=== PATIENT | female | born 1965 | race Caucasian/White ===

== ENCOUNTER 2023-10-12 09:51 | Outpatient (REF) | payer OTHER, SELFPAY ==
--- NOTE | ~2023-10-12 | MM_ITS ---
EXAMINATION: MM SCREENING DIGITAL BREAST TOMOSYNTHESIS, BILATERAL CLINICAL INFORMATION: Screening. Asymptomatic. COMPARISON: Mammography: This study is compared with prior exams dating back to 2012. TECHNIQUE: Digital breast tomosynthesis is performed in both the craniocaudal and mediolateral oblique views along with computer-aided detection (CAD). Synthesized 2D images are generated from the tomosynthesis. FINDINGS: The breasts are heterogeneously dense, which may obscure small masses (ACR BI-RADS breast composition Category c). There are no significant masses, abnormal calcifications, or other abnormalities. MM/MM tomosynthesis screening BI IMPRESSION: No mammographic evidence of malignancy. ASSESSMENT: BI-RADS BI-RADS 1 - Negative RECOMMENDATION: Routine annual mammography screening. 1 year F/U This examination should not preclude the clinical evaluation of a suspicious palpable abnormality. This patient's information was entered into a reminder system with a target due date for their next mammogram.
== END 2023-10-12 09:52 | disposition home or self-care (01) ==
LOC: HO.MAMMO 09:51
PROVIDERS: PCP Internal Medicine; Visit Provider Internal Medicine
DX: Z12.31 Encounter for screening mammogram for malignant neoplasm of breast (principal)
CPT/HCPCS: 77063; 77067

== ENCOUNTER → 2023-10-12 10:15 | Outpatient (BNV) | payer OTHER, SELFPAY | PROVIDERS: PCP Internal Medicine; Visit Provider Radiology Diagnostic Radiology | DX: Z12.31 Encounter for screening mammogram for malignant neoplasm of breast (principal) | CPT/HCPCS: 77063; 77067 ==

== ENCOUNTER 2023-12-28 13:55 | Outpatient (REF) | payer OTHER, SELFPAY | END 2023-12-28 13:56 | disposition home or self-care (01) | LOC: HO.LAB 13:55 | PROVIDERS: PCP Internal Medicine; Visit Provider Internal Medicine | DX: Z13.89 Encounter for screening for other disorder (principal) ==

== ENCOUNTER 2023-12-29 10:32 | Outpatient (REF) | payer OTHER, SELFPAY ==
[2023-12-29 10:44] LABS: MANUAL DIFF FLAG NO
[2023-12-29 11:03] LABS: Basophils Percent Auto 0.4 % (0-2); Eosinophils Absolute Auto 0.2 X10*3/uL (0.0-0.4); Eosinophils Percent Auto 2.4 % (0-4); Hematocrit 43.5 % (37.0-47.0); Hemoglobin 13.5 g/dl (12.0-16.0); Imm Gran Abs Auto 0.03 X10*3/uL (0.00-0.03); Imm Gran Pct Auto 0.4 % (0.0-0.4); Lymphocytes Absolute Auto 2.4 X10*3/uL (1.2-4.9); Lymphocytes Percent Auto 32.9 % (20-40); Mean Corpuscular Hemoglobin 24.4 pg (27.0-33.0); Mean Corpuscular Volume 78.7 fL (80.0-98.0); Mean Platelet Volume 9.9 fL (9.4-12.3); Monocytes Absolute Auto 0.5 X10*3/uL (0.1-1.2); Monocytes Percent Auto 7.2 % (2-11); Neutrophils Absolute Auto 4.1 x10*3/uL (2.0-8.3); Neutrophils Percent Auto 56.7 % (45-73); Platelet Count 247 X10*3/uL (160-400); Red Blood Count 5.53 X10*6/uL (4.20-5.50); Red Cell Distribution Width 14.6 % (11.0-16.0); White Blood Count 7.2 X10*3/uL (4.8-10.8)
[2023-12-29 12:01] LABS: Alanine Aminotransferase 19 U/L (0-31); Albumin Level 4.2 g/dL (3.5-5.0); Alkaline Phosphatase 109 U/L (39-117); Anion Gap 12 (12-20); Aspartate Amino Transferase 18 U/L (5-31); Bilirubin Total 0.2 mg/dL (0.0-1.0); Blood Urea Nitrogen 12 mg/dL (9-16); Calcium 9.8 mg/dL (8.4-10.2); Carbon Dioxide 24 mmol/L (22-29); Chloride 111 mmol/L (96-108); Cholesterol 192 mg/dL (<200); Estimated Glomerular Filt Rate > 60; Glucose Random 87 mg/dL (60-115); HDL Cholesterol 33 mg/dL (>40); LDL Cholesterol Calculated 126 mg/dL (<100); Sodium 142 mmol/L (135-145); Total Protein 7.5 g/dL (6.5-8.0); Triglycerides 167 mg/dL (<150)
== END 2023-12-29 10:33 | disposition home or self-care (01) ==
LOC: HO.LAB 10:32
PROVIDERS: PCP Internal Medicine; Visit Provider Internal Medicine
DX: Z00.00 Encounter for general adult medical examination without abnormal findings (principal); E78.00 Pure hypercholesterolemia, unspecified; F11.21 Opioid dependence, in remission; F32.9 Major depressive disorder, single episode, unspecified; I71.20 Thoracic aortic aneurysm, without rupture, unspecified; Z72.0 Tobacco use
CPT/HCPCS: 36415; 80053; 80061; 85025

== ENCOUNTER 2024-02-11 12:02 | Outpatient (REF) | payer OTHER, SELFPAY ==
[2024-02-11 14:07] LABS: Alanine Aminotransferase 19 U/L (0-31); Albumin Level 4.2 g/dL (3.5-5.0); Alkaline Phosphatase 101 U/L (39-117); Anion Gap 13 (12-20); Aspartate Amino Transferase 15 U/L (5-31); Bilirubin Total 0.2 mg/dL (0.0-1.0); Blood Urea Nitrogen 12 mg/dL (9-16); Calcium 9.5 mg/dL (8.4-10.2); Carbon Dioxide 24 mmol/L (22-29); Chloride 108 mmol/L (96-108); Cholesterol 243 mg/dL (<200); Estimated Glomerular Filt Rate > 60; Glucose Random 79 mg/dL (60-115); HDL Cholesterol 30 mg/dL (>40); LDL Cholesterol Calculated 159 mg/dL (<100); Potassium 4.6 mmol/L (3.3-5.1); Sodium 140 mmol/L (135-145); Total Protein 7.3 g/dL (6.5-8.0); Triglycerides 273 mg/dL (<150)
== END 2024-02-11 12:03 | disposition home or self-care (01) ==
LOC: HO.10HDL 12:02
PROVIDERS: Visit Provider Internal Medicine
DX: E78.00 Pure hypercholesterolemia, unspecified (principal); J43.9 Emphysema, unspecified; M79.18 Myalgia, other site; Z72.0 Tobacco use
CPT/HCPCS: 36415; 80053; 80061

== ENCOUNTER 2024-05-13 10:21 | Outpatient (REF) | payer OTHER, SELFPAY ==
[2024-05-13 12:01] LABS: Cholesterol 259 mg/dL (<200); HDL Cholesterol 29 mg/dL (>40); LDL Cholesterol Calculated 170 mg/dL (<100); Triglycerides 300 mg/dL (<150)
[2024-05-13 12:03] LABS: Thyroid Stimulating Hormone 2.71 uIU/mL (0.32-4.0)
== END 2024-05-13 10:22 | disposition home or self-care (01) ==
LOC: HO.10HDL 10:21
PROVIDERS: Visit Provider Internal Medicine
DX: E78.00 Pure hypercholesterolemia, unspecified (principal); Z72.0 Tobacco use; Z79.891 Long term (current) use of opiate analgesic
CPT/HCPCS: 36415; 80061; 84443

== ENCOUNTER 2024-05-20 12:35 | Outpatient (AMB) | payer OTHER, SELFPAY ==
--- NOTE | 2024-05-20 12:36 | MHC.OFFVIS ---
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: No Accompanied by: Self / Same As Patient Allergies penicillin G [PENICILLIN G] Allergy (Severe, Unverified 08/12/20 15:05) DIFFICULTY BREATHING Evbehkj-QJW-HdU Reductase Inhibitor Adverse Reaction (Severe, Verified 05/20/24 13:50) Muscle Pain Medication List - Last Reconciled 05/20/24 by Max Raymundo MD azithromycin 500 mg PO DAILY baclofen 10 mg PO TID hydroxyzine pamoate 50 mg PO BID PRN ibuprofen mg PO dorzbfws-opv-ZK-lycopen-lutein 0.4 mg-300 mcg- 250 mcg (CertaVite Senior) 1 tab PO DAILY sertraline mg PO topiramate 100 mg PO DAILY HPI Comments Details: Ani is here for consultation regarding assessment for coronary disease. Additionally, there is also diagnosis of thoracic aortic aneurysm based on PCP's note with a dimension of 4.3 cm. Unclear how this was diagnosed. Patient states that she does not have any known coronary disease or any other cardiac issues apart from the aneurysm. Otherwise, she is concerned as there is a family history of coronary disease in her siblings. Various siblings have had coronary disease, myocardial infarction, PCI extra. Hence there is a concern. There is a history of substance abuse including cocaine and heroin but nothing recently. She gets some atypical chest pains as well as shoulder/upper extremity discomfort but sounds very nonspecific. Nothing clearly exertional. [facility] Medical History (Updated 05/20/24 @ 13:48 by Max Raymundo MD) Ascending aortic aneurysm High cholesterol Substance abuse COPD (chronic obstructive pulmonary disease) Family History (Updated 05/20/24 @ 12:49 by Lottie Anne PRODUCTION TECHNOLOGIST) Mother Cancer Father Heart failure Brother Heart failure Diabetes Additional heart attack (anterolateral wall) Brother Heart failure History of cardioversion Son Palpitations Sister History of heart artery stent Social History (Updated 05/20/24 @ 13:46 by Max Raymundo MD) Alcohol intake: never Patient Tobacco Use Status: Current everyday Tobacco user Substance Use Type: Former Substance User Review of Systems Const Denies chills, Denies fatigue, Denies fever(s), Denies frequent falls, Denies weakness, Denies weight gain and Denies weight loss ENT Denies dizziness Card Denies chest pain, Denies leg edema, Denies lightheadedness, Denies palpitations, Denies dyspnea, Denies dyspnea on exertion and Denies orthopnea Resp Denies cough, Denies dyspnea and Denies dyspnea on exertion GI Denies bloating and Denies change in bowel habits Musc Denies muscle weakness, Denies numbness and Denies tingling Neuro Denies dizziness, Denies frequent falls, Denies numbness, Denies tingling and Denies weakness Endo Denies fatigue and Denies palpitations Physical Exam Vital Signs: Last Vital Signs Pulse 76 05/20/24 12:41 BP 124/60 05/20/24 12:41 BMI result Body Mass Index 25.5 Const General: comfortable and no acute distress Orientation/consciousness: patient oriented x3 HEENT Other: Unremarkable Head: Yes normal to inspection Neck Neck: Yes normal visual inspection Chest Chest palpation & inspection: normal inspection of the chest Resp Auscultation: clear to auscultation bilaterally Cardio Palpation: normal PMI Heart sounds: S1 normal heart sound present, S2 normal heart sound present, no gallops, Murmur heart sound present diastolic I/ and at the base and no rubs GI Palpation (GI): Soft to palpation Back/Spine/Pelvis Other: unremarkable Skin General skin exam: no rashes or lesions noted Neuro General: patient oriented x3 Extrem General: Yes normal to inspection Psych Mental Status: mental status grossly normal Office Procedures EKG Details: EKG with sinus rhythm at 76/Min; nonspecific ST-[place] changes; [place] [id number], Complete Assessment & Plan Assessment & Plan (1) Ascending aortic aneurysm: Code(s): I71.21 - Aneurysm of the ascending aorta, without rupture Category: Medical (2) Family history of coronary artery disease: Code(s): Z82.49 - Family history of ischemic heart disease and other diseases of the circulatory system Category: Medical Plan Multiple risk factors for coronary disease including smoking, substance abuse, strong family history. There is also description of thoracic aortic aneurysm of 4.3 cm. Can get coronary CTA for further evaluation which kinesis both her coronary status as well as the aorta. There is also a diastolic murmur which could indicate some degree of aortic insufficiency. We will get an echocardiogram in that regard. With regard to the history of statin intolerance, there is mention of Repatha through primary care and that seems reasonable. Orders: Orders Basic Metabolic Panel Today I71.21 - Aneurysm of the ascending aorta, without rupture CA echo transthoracic complete Today I71.21 - Aneurysm of the ascending aorta, without rupture CT Cardiac Coronary Angio Today I25.10 - Atherosclerotic heart disease of [place] coronary artery without angina pectoris, I71.21 - Aneurysm of the ascending aorta, without rupture Coding Level of Care Code New Pt Level 4 (27651) Diagnoses Ascending aortic aneurysm I71.21 Family history of coronary artery disease Z82.49 CPT Codes EKG - CPT: 29007-[id number], Complete ([id number])
[2024-05-20 12:41] VITALS: BP 124/60; PULSE 76; BMI 25.5
== END 2024-05-20 13:27 | disposition home or self-care (01) ==
PROVIDERS: PCP Internal Medicine; Visit Provider Internal Medicine
DX: I71.21 Aneurysm of the ascending aorta, without rupture (principal); Z82.49 Family history of ischemic heart disease and other diseases of the circulatory system
CPT/HCPCS: 93010; 99204

== ENCOUNTER → 2024-05-20 12:35 | Outpatient (BNVA) | payer OTHER, SELFPAY | PROVIDERS: PCP Internal Medicine; Visit Provider Internal Medicine | DX: I71.21 Aneurysm of the ascending aorta, without rupture (principal); Z82.49 Family history of ischemic heart disease and other diseases of the circulatory system | CPT/HCPCS: 93005; 99202 ==

== ENCOUNTER → 2024-06-04 14:51 | Outpatient (REF) | payer OTHER, SELFPAY ==
--- NOTE | 2024-06-04 14:53 | CA_ITS ---
Transthoracic Echocardiogram Patient (Last, First, Middle): Ani Zuñiga J Gender: Female Date of : 1965 Age: 59 Procedure Date: 06/04/2024 Procedure Type: Transthoracic Echocardiogram Location: OP Height: 172.72 cm Weight: 75.75 kg BSA: 1.89 m2 Heart Rate: bpm BP: 116 / 60 mmHg Food Production Worker: Referring MD: Max Raymundo MD Elevator Constructor Supervisor: Evan Avery MD Symptoms: I71.21 - Aneurysm of the ascending aorta, without rupture Study Quality: Adequate ECG Rhythm: Sinus Conclusions: - 1. Normal LV ejection fraction of 60 65% with impaired relaxation filling pattern with mild LVH 2. Mild aortic regurgitation and moderate aortic stenosis, bicuspid valve can not be entirely ruled out on this study 3. Normal RV systolic pressure 4. Moderately dilated ascending aorta in one view measuring up to 4.5 cm 5. No pericardial effusion Findings Left Ventricle Normal left ventricular size and systolic function. There is mildly increased left ventricular wall thickness. The visually estimated ejection fraction is between 60-65%. Spectral Doppler is indicative of an impaired relaxation filling pattern. E/E prime ratio is between 8 and 15 consistent with indeterminate filling pressures. Right Ventricle Normal right ventricular cavity size and systolic function. Atria The left atrium is normal in size. There is no evidence of interatrial shunt. The right atrium was not well visualized. Aortic Valve The aortic valve was not well visualized. There is moderate calcification of the aortic valve. There is moderate thickening of the aortic valve. There is moderate aortic valve stenosis. The peak aortic gradient is 30 mmHg.The mean gradient is 17 mmHg. There is mild aortic valve regurgitation. Mitral Valve Normal mitral valve structure and function. There is trace mitral valve regurgitation. There is no mitral valve stenosis. Pulmonic Valve The pulmonic valve is likely normal. There is trace pulmonic valve regurgitation. Tricuspid Valve Normal tricuspid valve structure. There is trace tricuspid valve regurgitation. The right ventricular systolic pressure is normal. The right ventricular systolic pressure is 27 mmHg. Normal right atrial pressure. Mild pulmonary hypertension is present. Great Vessels The pulmonary artery was not well visualized. There is moderate dilatation of the ascending aorta measuring 4.50 cm. Venous The inferior vena cava is normal in size and collapses greater than 50% with inspiration. Pericardium/Pleural There is no evidence of pericardial effusion. Prior Study Comparison No prior study available for comparison. Measurements 2D Linear Measurements IVSd: 1.23 0.6-0.9/0.6-1.0 cm LVIDd: 3.86 3.9-5.3/4.2-5.9 cm LVIDd Index: 2.04 2.4-3.2/2.2-3.1 cm/m2 LVIDs: 2.47 2.0-3.6 cm LVPWd: 1.22 0.7-1.1 cm Ao Root: 3.70 2.1-3.5 cm LA Diam: 3.00 2.7-3.8/3.0-4.0 cm LAIDs Index: 1.59 1.5-2.3 cm/m2 LV Mass: 201.48 67-162/88-224 g LV Mass Index: 106.60 43-95/49-115 g/m2 LVOT Diam: 2.20 3.0+(-)1.3 cm Mitral Valve MV Pk E: 0.37 MV PK A: 0.55 MV Decel Time: 175.00 E/A: 0.70 E'Lateral: 9.46 E'Medial: 7.07 E/E' Med: 5.30 E/E' Lat: 3.90 PHT: 51.00 MVA PHT: 4.31 Decel [place]: 2.13 Aortic Valve AoV Pk Aaron: 2.74 AoV Mn Aaron: 1.92 AoV VTI: 0.72 AoV Pk Grad: 30.00 Aov Mn Grad: 17.00 HERNESTO Cont.VTI: 1.06 LVOT LVOT Pk Aaron: 0.80 LVOT Mn Aaron: 0.59 LVOT VTI: 0.20 LVOT Pk Grad: 3.00 LVOT Mn Grad: 2.00 LVOT Diam: 2.20 LVOT Area: 3.80 Diastolic Function MV Pk E: 0.37 MV Pk A: 0.55 E/A: 0.70 E'Medial: 7.07 E/E' Med: 5.30 E' Laterial: 9.46 E/E' Lat: 3.90 Right Ventricle TAPSE (mm): 27.00 TVS' Aaron: 13.00 Tricuspid Valve TR Pk Aaron: 2.47 TR Pk Grad: 24.00 RA Press: 3.00 RVSP: 27.00 Great Vessels Aorta Ao Root-2D: 3.70 2.0-3.7 cm Ao Asc: 4.50 2.1-3.4 cm Pulmonary Valve PV Pk Aaron: 0.77 Peak PV Grad: 2.00 Updated in Other Vendor System with Status of Final Evan Avery MD electronically signed on 06/05/2024 9:31:09 AM with status of Final
== END ==
LOC: HO.CARD 14:51
PROVIDERS: PCP Internal Medicine; Visit Provider Internal Medicine
DX: I71.21 Aneurysm of the ascending aorta, without rupture (principal)
CPT/HCPCS: 93306

== ENCOUNTER → 2024-06-04 14:53 | Outpatient (BNV) | payer OTHER, SELFPAY | PROVIDERS: PCP Internal Medicine; Visit Provider Internal Medicine Cardiovascular Disease | DX: I35.2 Nonrheumatic aortic (valve) stenosis with insufficiency (principal); I35.8 Other nonrheumatic aortic valve disorders; I71.21 Aneurysm of the ascending aorta, without rupture | CPT/HCPCS: 93306 ==

== ENCOUNTER 2024-07-17 10:36 | Outpatient (REF) | payer OTHER, SELFPAY ==
[2024-07-17 12:42] LABS: Anion Gap 11 (12-20); Blood Urea Nitrogen 11 mg/dL (9-16); Calcium 9.6 mg/dL (8.4-10.2); Carbon Dioxide 26 mmol/L (22-29); Chloride 110 mmol/L (96-108); Estimated Glomerular Filt Rate > 60; Glucose Random 87 mg/dL (60-115); Potassium 4.6 mmol/L (3.3-5.1); Sodium 142 mmol/L (135-145)
== END 2024-07-17 10:37 | disposition home or self-care (01) ==
LOC: HO.LAB 10:36
PROVIDERS: PCP Internal Medicine; Visit Provider Internal Medicine
DX: I71.21 Aneurysm of the ascending aorta, without rupture (principal)
CPT/HCPCS: 36415; 80048

== ENCOUNTER 2024-08-21 13:28 | Outpatient (AMB) | payer OTHER, SELFPAY ==
[2024-08-21 13:30] VITALS: BP 100/62; PULSE 90; BMI 25.9
--- NOTE | 2024-08-21 13:30 | A.OFFVIS_ITS ---
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 Accompanied by: Self / Same As Patient Allergies penicillin G [PENICILLIN G] Allergy (Severe, Unverified 08/12/20 15:05) DIFFICULTY BREATHING Zjkywxr-GTZ-SkX Reductase Inhibitor Adverse Reaction (Severe, Verified 05/20/24 13:50) Muscle Pain Medication List - Last Reconciled 08/21/24 by Max Raymundo MD bupropion HCl XL 300 mg PO QAM hydroxyzine pamoate 50 mg PO BID PRN ibuprofen mg PO methadone 25 mg PO DAILY exjircmm-rjb-[place]-lycopen-lutein 0.4 mg-300 mcg- 250 mcg (CertaVite Senior) 1 tab PO DAILY sertraline 100 mg PO ONCE topiramate 100 mg PO DAILY HPI Comments Details: Ani returns for follow-up. Recently seen in consultation regarding question of coronary disease. Per PCP note, history of thoracic aortic aneurysm, dimension 4.3 cm. Patient concerned as there is family history of coronary disease in her siblings. There is a history of heroin and cocaine use in the past but nothing recently. Otherwise, she generally feels well. No clear-cut anginal symptoms or shortness of breath or anything along those lines. She has completed a coronary CTA. [facility] Medical History (Updated 08/21/24 @ 14:11 by Max Raymundo MD) Atherosclerotic cardiovascular disease Ascending aortic aneurysm High cholesterol Substance abuse COPD (chronic obstructive pulmonary disease) Family History Mother Cancer Father Heart failure Brother Heart failure Diabetes Additional heart attack (anterolateral wall) Brother Heart failure History of cardioversion Son Palpitations Sister History of heart artery stent Social History (Updated 08/21/24 @ 13:36 by Ligia Sanchez CMA) Alcohol intake: never Patient Tobacco Use Status: Current everyday Tobacco user Tobacco use type: Cigarette Cigarettes Per Day: 1 Substance Use Type: Former Substance User Review of Systems Const Denies chills, Denies fatigue, Denies fever(s), Denies weight gain and Denies weight loss ENT Denies dizziness Card Denies chest pain, Denies leg edema, Denies lightheadedness, Denies palpitations, Denies dyspnea on exertion, Denies orthopnea and Denies other Resp Denies cough and Denies dyspnea on exertion GI Denies hematochezia and Denies change in stool character Musc Denies abnormal gait, Denies muscle weakness, Denies numbness, Denies radiating pain into limb and Denies tingling Neuro Denies abnormal gait, Denies dizziness, Denies numbness and Denies tingling Endo Denies fatigue and Denies palpitations Physical Exam Vital Signs: Last Vital Signs Pulse 90 08/21/24 13:30 BP 100/62 08/21/24 13:30 BMI result Body Mass Index 25.9 Const General: comfortable and no acute distress Orientation/consciousness: patient oriented x3 HEENT Other: Unremarkable Head: Yes normal to inspection Neck Neck: Yes normal visual inspection Chest Chest palpation & inspection: normal inspection of the chest Resp Auscultation: clear to auscultation bilaterally Cardio Palpation: normal PMI Heart sounds: S1 normal heart sound present, S2 normal heart sound present, no gallops, Murmur heart sound present diastolic II/ and systolic III/ and no rubs GI Palpation (GI): Soft to palpation Back/Spine/Pelvis Other: unremarkable Skin General skin exam: no rashes or lesions noted Neuro General: patient oriented x3 Extrem General: Yes normal to inspection Psych Mental Status: mental status grossly normal Assessment & Plan Assessment & Plan (1) Ascending aortic aneurysm: Code(s): I71.21 - Aneurysm of the ascending aorta, without rupture Category: Medical Plan: In the coronary CTA, ascending aortic size 4.6 cm. Findings discussed with patient. Will repeat in 6 months with an echocardiogram for follow-up. (2) Atherosclerotic cardiovascular disease: Code(s): I25.10 - Atherosclerotic heart disease of [place] coronary artery without angina pectoris Category: Medical Plan: Proximal LAD plaque with less than 25% stenosis. Her lipids are quite high. Discussed about statins, but she states she cannot take due to myalgias. To consider Repatha or Praluent. Reading material given. She would like to think about it. (3) Bicuspid aortic valve: Code(s): Q23.1 - Congenital insufficiency of aortic valve Category: Medical Plan: Images reviewed and aortic valve was not well visualized. Possible bicuspid. Moderate aortic stenosis with mild aortic regurgitation. Findings discussed. Will need to be followed echocardiogram. Orders: Orders CA echo transthoracic complete 6 Months I71.21 - Aneurysm of the ascending aorta, without rupture, Q23.1 - Congenital insufficiency of aortic valve Coding Level of Care Code Est Pt Level 4 (51676) Diagnoses Ascending aortic aneurysm I71.21 Atherosclerotic cardiovascular disease I25.10 Bicuspid aortic valve Q23.1
== END 2024-08-21 13:51 | disposition home or self-care (01) ==
PROVIDERS: PCP Internal Medicine; Visit Provider Internal Medicine
DX: I71.21 Aneurysm of the ascending aorta, without rupture (principal); I25.10 Atherosclerotic heart disease of native coronary artery without angina pectoris; Q23.1 Congenital insufficiency of aortic valve
CPT/HCPCS: 99214

== ENCOUNTER → 2024-08-21 13:28 | Outpatient (BNVA) | payer OTHER, SELFPAY | PROVIDERS: PCP Internal Medicine; Visit Provider Internal Medicine | DX: I71.21 Aneurysm of the ascending aorta, without rupture (principal); I25.10 Atherosclerotic heart disease of native coronary artery without angina pectoris; Q23.1 Congenital insufficiency of aortic valve | CPT/HCPCS: 99212 ==

== ENCOUNTER 2024-08-26 14:45 | Outpatient (AMB) | payer OTHER, SELFPAY ==
--- NOTE | 2024-08-26 14:57 | A.OFFVIS_ITS ---
Vital Signs 08/26/24 14:59 Height 5 ft 8 in Weight 171 lb 15.369 oz BMI 26.1 BP 122/60 Blood Pressure Location Lt brachial Position Sitting Pulse 88 Pulse Source Pulse Oximeter Pulse Oximetry (%) 90 L Oxygen Delivery Method Room Air Intake Visit Reasons: Abnormal CTA/Emphysema Burrer Marker Axle Required: No Allergies penicillin G [PENICILLIN G] Allergy (Severe, Unverified 08/26/24 15:01) DIFFICULTY BREATHING Bdezidk-GUV-ZiS Reductase Inhibitor Adverse Reaction (Severe, Verified 08/26/24 15:01) Muscle Pain HPI Comments Details: The patient is here for pulmonary evaluation. The patient is 59 year woman with a known history of tobacco dependency presenting with abnormal findings on imaging study. Apparently the patient does have underlying heart disease including a bicuspid aortic valve in a ascending aortic aneurysm. She did undergo a coronary artery CT scan to better address the coronary arteries and there they mention that there was extensive amount of emphysema and also 3 mm pulmonary nodule. Explained to the patient that the amount of lung windows on the CT scan of the coronary arteries is very limited. Therefore, it is not a complete evaluation of her lung parenchyma. Therefore, because of her smoking history she is a great candidate for the lung cancer screening program. Will go ahead and try to initiate a program in order to get her situated with serial CT scans in view of her high risk for cancer. In view of the significant emphysema noted on her CT scan it is very reasonable to perform a DNA swab for alpha-1 antitrypsin deficiency specially since she is only 59 years of age. In addition to that the patient did have a walking oximetry in the office and she initially was around 92% with activity but she quickly improved to 94% with deep breathing. Will go ahead and perform pulmonary function study to see the degree of lung capacity. She does have a rescue inhaler this time which she can use as needed. Will hold off on any additional inhalers until we review her PFTs. The patient is working on smoking cessation. She is down to 1 cigarette a day. She struggles with the however. Therefore, I did send her the nicotine patches that she can use up 14 mg and also consider using lozenges as needed in between. [facility] Medical History (Updated 08/26/24 @ 20:44 by Nasim Snow MD) Pulmonary nodule Tobacco dependence Atherosclerotic cardiovascular disease Ascending aortic aneurysm High cholesterol Substance abuse COPD (chronic obstructive pulmonary disease) Family History Mother Cancer Father Heart failure Brother Heart failure Diabetes Additional heart attack (anterolateral wall) Brother Heart failure History of cardioversion Son Palpitations Sister History of heart artery stent Social History (Updated 08/21/24 @ 13:36 by Ligia Sanchez CMA) Alcohol intake: never Patient Tobacco Use Status: Current everyday Tobacco user Tobacco use type: Cigarette Cigarettes Per Day: 1 Substance Use Type: Former Substance User Review of Systems Const Denies fever(s) ENT Reports nasal congestion Card Denies chest pain and Reports dyspnea on exertion Resp Reports dyspnea on exertion and Reports wheezing GI Reports no additional complaints Musc Reports no additional complaints Skin/Breast Denies rash Satya/Lymph Reports no additional complaints Aller/Immun Reports wheezing Physical Exam Vital Signs: Last Vital Signs Pulse 88 08/26/24 14:59 BP 122/60 08/26/24 14:59 Pulse Ox 90 L 08/26/24 14:59 Oxygen Delivery Method Room Air 08/26/24 14:59 BMI result Body Mass Index 26.1 Const General: comfortable HEENT Head: Yes normocephalic Neck Neck: Yes supple Chest Chest palpation & inspection: normal inspection of the chest Resp Effort & Inspection: normal respiratory effort Auscultation: diminished lung sounds Cardio Heart sounds: S1 normal heart sound present and S2 normal heart sound present GI Palpation (GI): Soft to palpation Skin General skin exam: no rashes or lesions noted Extrem General: Yes clubbing, No cyanosis and No edema Assessment & Plan Assessment & Plan (1) COPD (chronic obstructive pulmonary disease): Code(s): J44.9 - Chronic obstructive pulmonary disease, unspecified Category: Medical Qualifiers: COPD type: emphysema Emphysema type: centrilobular Qualified Code(s): J43.2 - Centrilobular emphysema (2) Tobacco dependence: Code(s): F17.200 - Nicotine dependence, unspecified, uncomplicated Category: Medical (3) Pulmonary nodule: Code(s): R91.1 - Solitary pulmonary nodule Category: Medical Plan Alpha 1 testing today PFTs start nicotene patch LUIS M as needed will refer to the LDCT program based on the fact that she has not had a formal CT chest F/U 2-3 months Orders: Orders PFT pulmonary function test Today J44.9 - Chronic obstructive pulmonary disease, unspecified Medications: New nicotine 1 patch transdermal DAILY 28 ea 3RF 28 days Coding Level of Care Code New Pt Level 4 (23327) Diagnoses Centrilobular emphysema J43.2 COPD type: emphysema Emphysema type: centrilobular Tobacco dependence F17.200 Pulmonary nodule R91.1 Time Spent (min) 40
[2024-08-26 14:59] VITALS: BP 122/60; PULSE 88; O2SAT 90; BMI 26.1
== END 2024-08-26 15:27 | disposition home or self-care (01) ==
PROVIDERS: PCP Internal Medicine; Referring Provider Internal Medicine; Visit Provider Hospitalist
DX: J43.2 Centrilobular emphysema (principal); F17.200 Nicotine dependence, unspecified, uncomplicated; R91.1 Solitary pulmonary nodule
CPT/HCPCS: 99204

== ENCOUNTER → 2024-08-26 14:45 | Outpatient (BNVA) | payer OTHER, SELFPAY | PROVIDERS: PCP Internal Medicine; Referring Provider Internal Medicine; Visit Provider Hospitalist | DX: J43.2 Centrilobular emphysema (principal); R91.1 Solitary pulmonary nodule; F17.210 Nicotine dependence, cigarettes, uncomplicated | CPT/HCPCS: 99202 ==

== ENCOUNTER 2024-10-21 15:59 | Outpatient (REF) | payer OTHER, SELFPAY ==
[2024-10-21 10:30] VITALS: PULSE 85; O2SAT 92
--- NOTE | 2024-10-21 16:04 | PFT_ITS ---
Flows: FEV1: 79 % of predicted at 2.24 L FVC: 109 % of predicted at 3.93 L FEV1/FVC: 57 % Bronchodilator response: Present Volumes: Total lung capacity: 90 % of predicted at 5.27 L Residual volume: 80 % of predicted at 1.59 L Slow vital capacity: 96 % of predicted at 3.67 L Expiratory reserve volume: 63 % of predicted at no 0.6 to L Diffusion capacity: Mildly decreased Impression: Moderate obstructive ventilatory defect with positive bronchodilator response. Decreased diffusion capacity suggests emphysema. MTDD
== END 2024-10-21 16:00 | disposition home or self-care (01) ==
LOC: HO.RESP 15:59
PROVIDERS: PCP Internal Medicine; Visit Provider Hospitalist
DX: J44.9 Chronic obstructive pulmonary disease, unspecified (principal)
CPT/HCPCS: 94010; 94640; 94727; 94729

== ENCOUNTER → 2024-10-21 16:04 | Outpatient (BNV) | payer OTHER, SELFPAY | PROVIDERS: PCP Internal Medicine; Visit Provider Internal Medicine Pulmonary Disease | DX: J44.9 Chronic obstructive pulmonary disease, unspecified (principal) | CPT/HCPCS: 94060; 94727; 94729 ==

== ENCOUNTER → 2024-11-10 13:15 | Outpatient (BNV) | payer OTHER, SELFPAY | PROVIDERS: PCP Internal Medicine; Visit Provider Internal Medicine | DX: Z12.31 Encounter for screening mammogram for malignant neoplasm of breast (principal) | CPT/HCPCS: 77063; 77067 ==

== ENCOUNTER 2024-11-10 13:16 | Outpatient (REF) | payer OTHER, SELFPAY | END 2024-11-10 13:17 | disposition home or self-care (01) | LOC: HO.MAMMO 13:16 | PROVIDERS: PCP Internal Medicine; Visit Provider Internal Medicine | DX: Z12.31 Encounter for screening mammogram for malignant neoplasm of breast (principal) | CPT/HCPCS: 77063; 77067 ==

== ENCOUNTER 2024-12-02 13:56 | Outpatient (AMB) | payer OTHER, SELFPAY ==
[2024-12-02 13:58] VITALS: BP 130/84; PULSE 86; O2SAT 90; BMI 27.0
--- NOTE | 2024-12-02 13:58 | A.OFFVIS_ITS ---
Vital Signs 12/02/24 13:58 Height 5 ft 8 in Weight 177 lb 7.554 oz BMI 27.0 BP 130/84 Blood Pressure Location Rt brachial Position Sitting Pulse 86 Pulse Source Pulse Oximeter Pulse Oximetry (%) 90 L Oxygen Delivery Method Room Air Intake Visit Reasons: Emphysema Allergies penicillin G [PENICILLIN G] Allergy (Severe, Unverified 12/02/24 14:02) DIFFICULTY BREATHING Skdevxh-PJC-YmL Reductase Inhibitor Adverse Reaction (Severe, Verified 12/02/24 14:02) Muscle Pain HPI Comments Details: The patient is 59 year woman with a known history of tobacco dependency presenting with abnormal findings on imaging study. Apparently the patient does have underlying heart disease including a bicuspid aortic valve in a ascending aortic aneurysm. She did undergo a coronary artery CT scan to better address the coronary arteries and there they mention that there was extensive amount of emphysema and also 3 mm pulmonary nodule. Explained to the patient that the amount of lung windows on the CT scan of the coronary arteries is very limited. Therefore, it is not a complete evaluation of her lung parenchyma. Therefore, because of her smoking history she is a great candidate for the lung cancer screening program. Will go ahead and try to initiate a program in order to get her situated with serial CT scans in view of her high risk for cancer. In view of the significant emphysema noted on her CT scan it is very reasonable to perform a DNA swab for alpha-1 antitrypsin deficiency specially since she is only 59 years of age. In addition to that the patient did have a walking oximetry in the office and she initially was around 92% with activity but she quickly improved to 94% with deep breathing. Will go ahead and perform pulmonary function study to see the degree of lung capacity. She does have a rescue inhaler this time which she can use as needed. Will hold off on any additional inhalers until we review her PFTs. The patient is working on smoking cessation. She is down to 1 cigarette a day. She struggles with the however. Therefore, I did send her the nicotine patches that she can use up 14 mg and also consider using lozenges as needed in between. 12/02/2024 the patient is here for a pulmonary follow-up visit. The patient overall is doing well. She quit smoking and she is very happy about that. She has been smoke free for 3 months. She does have a CT scan scheduled for the end of the month for the lung cancer screening program. In addition to that she did have pulmonary function studies. Appears to have a moderate degree of COPD. She did have a significant response to bronchodilators. Will be reasonable to start her on oral. She can try for a month to see if this is helpful. She does complaint of dyspnea on exertion. Also with the cold weather bothers her more so this will be helpful specially during the winter months. The patient will follow-up in 8-10 months. If she has any issues prior to that she will call for an earlier assessment. Also to note her genotype for alpha-1 was mm which is normal. [facility] Medical History (Updated 11/14/24 @ 07:55 by Karen Pelletier PA-C) Nicotine dependence, cigarettes, uncomplicated Personal history of nicotine dependence Pulmonary nodule Atherosclerotic cardiovascular disease Ascending aortic aneurysm High cholesterol Substance abuse COPD (chronic obstructive pulmonary disease) Family History (Reviewed 08/21/24 @ 13:35 by Ligia Sanchez [facility]) Mother Cancer Father Heart failure Brother Heart failure Diabetes Additional heart attack (anterolateral wall) Brother Heart failure History of cardioversion Son Palpitations Sister History of heart artery stent Social History (Updated 12/02/24 @ 14:01 by Magaly Esets [facility]) Alcohol intake: never Patient Tobacco Use Status: Former Tobacco user Tobacco use type: Cigarette Cigarettes Per Day: 1 Substance Use Type: Former Substance User Review of Systems Const Denies fever(s) ENT Reports nasal congestion Card Denies chest pain and Reports dyspnea on exertion Resp Reports dyspnea on exertion and Reports wheezing GI Reports no additional complaints Musc Reports no additional complaints Skin/Breast Denies rash Satya/Lymph Reports no additional complaints Aller/Immun Reports wheezing Physical Exam Vital Signs: Last Vital Signs Pulse 86 12/02/24 13:58 BP 130/84 12/02/24 13:58 Pulse Ox 90 L 12/02/24 13:58 Oxygen Delivery Method Room Air 12/02/24 13:58 BMI result Body Mass Index 27.0 Const General: comfortable HEENT Head: Yes normocephalic Neck Neck: Yes supple Chest Chest palpation & inspection: normal inspection of the chest Resp Effort & Inspection: normal respiratory effort Auscultation: diminished lung sounds Cardio Heart sounds: S1 normal heart sound present and S2 normal heart sound present GI Palpation (GI): Soft to palpation Skin General skin exam: no rashes or lesions noted Extrem General: Yes clubbing, No cyanosis and No edema Assessment & Plan Assessment & Plan (1) COPD (chronic obstructive pulmonary disease): Code(s): J44.9 - Chronic obstructive pulmonary disease, unspecified Category: Medical Qualifiers: COPD type: emphysema Emphysema type: centrilobular Qualified Code(s): J43.2 - Centrilobular emphysema (2) Tobacco dependence: Code(s): F17.200 - Nicotine dependence, unspecified, uncomplicated Category: Medical (3) Pulmonary nodule: Code(s): R91.1 - Solitary pulmonary nodule Category: Medical Plan start Anoro PFTs-moderate COPD nicotene patch->lozengers LUIS M as needed LDCT 12/19/24 F/U 8-10 months Medications: New umeclidinium-vilanterol 62.5-25 mcg/actuation (Anoro Ellipta) 1 inh inhalation DAILY 60 ea 11RF J44.89 - Other specified chronic obstructive pulmonary disease Coding Level of Care Code Est Pt Level 4 (82445) Diagnoses Centrilobular emphysema J43.2 COPD type: emphysema Emphysema type: centrilobular Tobacco dependence F17.200 Pulmonary nodule R91.1 Time Spent (min) 17
== END 2024-12-02 14:22 | disposition home or self-care (01) ==
PROVIDERS: PCP Internal Medicine; Visit Provider Hospitalist
DX: J43.2 Centrilobular emphysema (principal); F17.200 Nicotine dependence, unspecified, uncomplicated; R91.1 Solitary pulmonary nodule
CPT/HCPCS: 99214

== ENCOUNTER → 2024-12-02 13:56 | Outpatient (BNVA) | payer OTHER, SELFPAY | PROVIDERS: PCP Internal Medicine; Visit Provider Hospitalist | DX: J43.2 Centrilobular emphysema (principal); J44.89 Other specified chronic obstructive pulmonary disease; R91.1 Solitary pulmonary nodule; Z87.891 Personal history of nicotine dependence | CPT/HCPCS: 99212 ==

== ENCOUNTER → 2024-12-19 10:29 | Outpatient (BNV) | payer OTHER, SELFPAY | PROVIDERS: PCP Internal Medicine; Visit Provider Specialist | DX: F17.210 Nicotine dependence, cigarettes, uncomplicated (principal) | CPT/HCPCS: 71271 ==

== ENCOUNTER 2024-12-19 10:52 | Outpatient (REF) | payer OTHER, SELFPAY ==
--- NOTE | ~2024-12-19 | CT_ITS ---
CLINICAL HISTORY: F17.210 - Nicotine dependence, cigarettes, uncomplicated CT lung cancer screening (LDCT) Comparison: None Technique: Axial CT images of the chest using low-dose technique. Referring provider counseled the patient on shared decision-making for LDCT screening. Additional counseling was provided on smoking cessation. Effective radiation dose total: DLP 41.5 mGycm, CTDIvol 1.2 mGy. Findings: Lung: Solid left upper lobe lingular segment 0.6 x 0.2 cm lesion. Coronary artery calcifications: Mild Limited upper abdomen: Unremarkable Other: Maximal ascending aortic diameter is 4.9 x 4.6 cm. There is bilateral lower lobe scarring or subsegmental atelectasis. Impression: 1. Category 3: Probably benign, six-month CT recommended. 2. 4.9 x 4.6 cm ascending aortic aneurysm. Category 1: Normal; continue annual screening Category 2: Benign appearance or behavior, continue annual screening Category 3: Probably benign, [address] recommended Category 4A: Suspicious, [address] recommended; may consider PET/CT Category 4B: Suspicious, Additional diagnostics and/or tissue sampling recommended Category 4X: Suspicious, Additional diagnostics and/or tissue sampling recommended Category 0: Recalls (incomplete screen due to Incomplete coverage, Noise, Respiratory motion, Expiration, Obscured by acute abnormality) This document has been electronically signed by: Ajit Fairbanks MD on 12/20/2024 09:01:02
--- OUTSIDE RECORDS SUMMARY | 2024-12-19 12:52 | XMS_ITS | Clinical Summary ---
Author Organization [facility] Address [address] [place] [address] Care Team Providers Care Electric Fan Assembler Name Role Phone Karen Ann MD Primary Care Provider [phone] Source Comments PLEASE NOTE, if this patient is a minor, it may be UNLAWFUL to discuss sensitive information that is contained in these records (such as FAMILY PLANNING, MENTAL HEALTH or SUBSTANCE ABUSE) with the minor patient's parent or other person without the patient's specific authorization.[facility] Allergies Active Allergy Reactions Criticality Noted Date Comments Penicillins Anaphylaxis High 12/08/2022 Medications methadone (DOLOPHINE) 10 mg/mL concentrated solution 50 mg daily. [facility]. 0 3 Active acetaminophen (TYLENOL) 325 mg tablet Take 2 Tablets by mouth every 6 (six) hours as needed for pain 120 Tablet 2 3 Active albuterol HFA (PROVENTIL HFA) 90 mcg/actuation inhaler Inhale 2 Puffs into the lungs every 4 (four) hours as needed for shortness of breath or wheezing 8 g 5 3 Active ibuprofen 200 mg capsule Take 2 Capsules by mouth every 6 (six) hours as needed for pain 120 Capsule 2 3 Active baclofen (LIORESAL) 10 mg tablet Take 1 Tablet by mouth 3 (three) times daily 84 Tablet 3 Active hydrOXYzine pamoate (VISTARIL) 50 mg capsule TAKE 1 CAPSULE BY MOUTH 3 TIMES DAILY NEEDED FOR ANXIETY. 84 Capsule 3 Active topiramate (TOPAMAX) 100 mg tablet TAKE 1 TABLET BY MOUTH EVERYDAY AT BEDTIME 28 Tablet 3 Active nicotine (NICOTROL) 10 mg inhaler Puff continuously on inhaler for up to 20 minutes as needed for nicotine cravings. Maximum dose is 16 cartridges per day 168 Each 5 3 Active nicotine polacrilex (COMMIT) 4 mg lozenge Use 1 piece every 1 to 2 hours PRN cravings. (maximum: 24 pieces/day) 168 Lozenge 11 3 Active sertraline (ZOLOFT) 50 mg tablet Take 1 Tablet by mouth once daily 90 Tablet 1 3 Active atorvastatin (LIPITOR) 20 mg tablet Take 1 Tablet by mouth once daily 90 Tablet 1 3 Active Active Problems Problem Noted Date Diagnosed Date Calcification of aortic valve 01/19/2023 Overview (01/19/2023): Noted on chest CT imaging Dec 2022 Assessment & Plan (02/16/2023 1:16 PM EDT): TTE pending next week. Asymptomatic without signs of heart failure or symptomatic aortic stenosis. Assessment & Plan (01/19/2023 11:51 AM EST): Noted on chest CT imaging Dec 2022. No symptoms of palpitations, SOB, LEMON, edema, CP. Will refer for f/u TTE @ [facility] Cardiovascular event risk 12/15/2022 Overview (12/15/2022): Patient's 10 year ASCVD risk is 6.8 % as calculated by ACC AHA risk calculator (https://www.cvriskcalculator.com/).--Nov 2021 Assessment & Plan (12/29/2022 12:07 PM EST): Patient's 10 year ASCVD risk is 6.8 % as calculated by ACC AHA risk calculator (https://www.cvriskcalculator.com/).--Nov 2021 Based on this risk, plan is to cont statin and encourage smoking cessation. Tolerating statin dose well without adverse effect so will titrate up to 20 mg dailsy. Assessment & Plan (12/15/2022 1:56 PM EST): Patient's 10 year ASCVD risk is 6.8 % as calculated by ACC AHA risk calculator (https://www.cvriskcalculator.com/).--Nov 2021 Based on this risk, plan is to cont statin and encourage smoking cessation. If tolerates, will encourage dose titration of statin. Sheltered homelessness 12/08/2022 Assessment & Plan (02/16/2023 1:15 PM EDT): Patient is currently experiencing homelessness as documented in homeless status for this encounter. Pt currently staying @ [facility] in [place] and working with support services to find stable housing and income opportunities. Given complex limitations of homelessness, provided care as appropriate. Will continue to support as possible. Assessment & Plan (01/19/2023 11:53 AM EST): Patient is currently experiencing homelessness as documented in homeless status for this encounter. Pt currently staying @ [facility] in [place] and working with support services to find stable housing and income opportunities. Given complex limitations of homelessness, provided care as appropriate. Will continue to support as possible. Assessment & Plan (12/29/2022 12:10 PM EST): Patient is currently experiencing homelessness as documented in homeless status for this encounter. Pt currently staying @ [facility] in [place] and working with support services to find stable housing and income opportunities. Given complex limitations of homelessness, provided care as appropriate. Will continue to support as possible. Assessment & Plan (12/15/2022 1:58 PM EST): Patient is currently experiencing homelessness as documented in homeless status for this encounter. Pt currently staying @ [facility] in [place] and working with support services to find stable housing and income opportunities. Given complex limitations of homelessness, provided care as appropriate. Will continue to support as possible. Assessment & Plan (12/08/2022 6:28 PM EST): Patient is currently experiencing homelessness as documented in homeless status for this encounter. Pt currently staying @ [facility] in [place] and working with support services to find stable housing and income opportunities. Given complex limitations of homelessness, provided care as appropriate. Will continue to support as possible. Opioid use disorder, severe ([facility]) 12/08/2022 Assessment & Plan (02/16/2023 1:16 PM EDT): Recent relapse and OD. Provided support and motivational interviewing to continue in recovery. Pt cont on methadone treatment. Discussed suboxone and sublocade treatment. Pt declines at this time but will consider moving forward. Wants to be off all medication treatment moving forward. Will send in narcan rx. . Assessment & Plan (01/19/2023 11:53 AM EST): Stable on methadone. Provided support and motivational interviewing to continue in recovery. . Assessment & Plan (12/29/2022 12:10 PM EST): Stable on methadone. Provided support and motivational interviewing to continue in recovery. . Assessment & Plan (12/15/2022 1:59 PM EST): Stable on methadone. Submitted PT1 for daily transport from residential program to [facility]. Provided support and motivational interviewing to continue in recovery. . Assessment & Plan (12/08/2022 6:28 PM EST): Stable on methadone @ [facility]. Provided support and motivational interviewing to continue in recovery. . Continuous dependence on cigarette smoking 12/08 Assessment & Plan (02/16/2023 1:03 PM EDT): Using nicotine replacement therapy lozenges. Provided support and motivational interviewing to continue in quitting efforts. Assessment & Plan (01/19/2023 11:52 AM EST): Unable to get nicotine inhaler due to supply problems. Pt expressed interest today for nicotine replacement in form of lozenges. Discussed proper use and possible adverse effects. Will prescribe nicotine replacement for pt and asked pt to f/u. To come to clinic if any adverse effects noted. Assessment & Plan (12/29/2022 12:09 PM EST): Unable to get nicotine inhaler due to supply problems. Pt expressed interest today for nicotine replacement in form of lozenges. Discussed proper use and possible adverse effects. Will prescribe nicotine replacement for pt and asked pt to f/u. To come to clinic if any adverse effects noted. Assessment & Plan (12/15/2022 1:57 PM EST): Nicotrol inh not at pharmacy. Would like sent to a different pharmacy. Provided support and motivational interviewing to continue in quitting efforts. Assessment & Plan (12/08/2022 6:27 PM EST): Pt expressed interest today for nicotine replacement in form of inhalers. Discussed proper use and possible adverse effects. Will prescribe nicotine replacement for pt and asked pt to f/u. To come to clinic if any adverse effects noted. Aneurysm of ascending aorta without rupture ([facility]) 12/08/2022 Overview (01/19/2023): (May 2022) Incidental finding on neck CT with 4.5 x 4.4 cm fusiform aneurysm of the ascending thoracic aorta/ f/u noncontrast CT of the chest which showed complete visualization of 4.7 cm ascending aortic aneurysm (Dec 2022) Repeat Chest CT @ [facility]. Ectasia of the ascending aorta measuring 4.4 cm. Calcified aortic valve. Recommend TTE and annual follow up CT in 1 year with ECG gated chest CTA [facility] Vasc Sgy appt 04/20/2023, 11:30AM Assessment & Plan (02/16/2023 1:03 PM EDT): (May 2022) Incidental finding on neck CT with 4.5 x 4.4 cm fusiform aneurysm of the ascending thoracic aorta/ f/u noncontrast CT of the chest which showed complete visualization of 4.7 cm ascending aortic aneurysm (Dec 2022) Repeat Chest CT @ [facility]. Ectasia of the ascending aorta measuring 4.4 cm. Calcified aortic valve. Recommend TTE (scheduled for next week) and annual follow up CT in 1 year with ECG gated chest CTA [facility] Echo 02/20/23 [facility] Vasc Sgy appt 04/20/2023, 11:30AM Cont statin. BP well controlled off meds. Encourage smoking cessation. Assessment & Plan (01/19/2023 11:49 AM EST): (May 2022) Incidental finding on neck CT with 4.5 x 4.4 cm fusiform aneurysm of the ascending thoracic aorta/ f/u noncontrast CT of the chest which showed complete visualization of 4.7 cm ascending aortic aneurysm (Dec 2022) Repeat Chest CT @ [facility]. Ectasia of the ascending aorta measuring 4.4 cm. Calcified aortic valve. Recommend TTE and annual follow up CT in 1 year with ECG gated chest CTA [facility] Vasc Sgy appt 04/20/2023, 11:30AM Cont statin. BP well controlled off meds. Encourage smoking cessation. Assessment & Plan (12/29/2022 12:06 PM EST): Awaiting vasc sgy appt at [facility]. Cont on statin. BP well controlled. Encouraged smoking cessation and repeat CT chest. Assessment & Plan (12/15/2022 1:57 PM EST): Awaiting vasc sgy appt at [facility]. Cont on statin. BP well controlled. Encouraged smoking cessation and repeat CT chest. Assessment & Plan (12/08/2022 6:27 PM EST): Incidental finding on CT scan this past May 2022. 4.5 x 4.4 cm fusiform aneurysm of the ascending thoracic aorta. Was to f/u with Vasc Sgy but missed appt. Recommendation was annual screening and f/u. Will repeat CT chest and refer to vasc sgy @ [facility]. Encourage smoking cessation and start statin. BP well controlled off treatment with SBPs in 90 so not really any room to add ERENDIRA inhibitor or other anti-HTN. Close f/u. Healthcare maintenance 12/08/2022 Assessment & Plan (02/16/2023 1:16 PM EDT): Shingle vax #2 today and HAV/HBV vax #2. Assessment & Plan (01/19/2023 11:53 AM EST): GI @ [facility] wants [facility] sgy to see pt before scheduling colonoscopy. Referred for mammogram. Awaiting scheduling at [facility] Assessment & Plan (12/29/2022 12:11 PM EST): Due for HAV/HBV vax today. Patient denies previous reaction Hep A vaccine, and also denies any reaction to any other vaccine. Vaccine Information Statement (VIS) provided and reviewed with patient. Hepatitis A vaccine administered, no adverse effects noted at this time. Patient denies allergy to ramos's yeast or previous reaction to Hep B vaccine. Vaccine Information Statement (VIS) provided and reviewed with patient. Vaccine administered, no adverse effects noted at this time. Due for PCV 20 today as well. Mammogram ordered and working on scheduling. Referred for colonoscopy to [facility] as well. Assessment & Plan (12/15/2022 2:01 PM EST): HAV/HBV vaccine today. Referral for mammogram at [facility]. Needs to complete colon ca and cervical ca screening as well. Assessment & Plan (12/08/2022 6:28 PM EST): Shingles, flu, tdap vax today. Check baseline labs. Will work with PCP to schedule mammogram, colon ca screening, and pap smear. Moderate episode of recurren t major depressive disorder ([facility]) 12/08/2022 Assessment & Plan (12/29/2022 12:10 PM EST): 12/08/2022 10:20 AM Little interest or pleasure in doing things Several days Feeling down, depressed or hopeless [include irritable if under 18] Several days Trouble falling or staying asleep, or sleeping too much Several days Feeling tired or having little energy Several days Poor appetite or overeating More than half the days Feeling bad about yourself - or that you are a failure or have let yourself or your family down Several days Trouble concentrating on things like school work, reading or watching TV? More than half the days Moving or speaking so slowly that other people could have noticed? Or the opposite - being so fidgety or restless that you have been moving around a lot more than usual More than half the days Thoughts you would be better off or of hurting yourself in some way Not at all PHQ-9 Total Score (Auto Calculated) (!) 11 Depression Severity: Moderate consistent with moderate depression. Tolerating SSRI well. The current medical regimen is effective; continue present plan and medications. Assessment & Plan (12/08/2022 11:02 AM EST): 12/08/2022 10:20 AM Little interest or pleasure in doing things Several days Feeling down, depressed or hopeless [include irritable if under 18] Several days Trouble falling or staying asleep, or sleeping too much Several days Feeling tired or having little energy Several days Poor appetite or overeating More than half the days Feeling bad about yourself - or that you are a failure or have let yourself or your family down Several days Trouble concentrating on things like school work, reading or watching TV? More than half the days Moving or speaking so slowly that other people could have noticed? Or the opposite - being so fidgety or restless that you have been moving around a lot more than usual More than half the days Thoughts you would be better off or of hurting yourself in some way Not at all PHQ-9 Total Score (Auto Calculated) (!) 11 Depression Severity: Moderate consistent with moderate depression. Start SSRI and f/u with PCP. Cocaine use disorder, severe ([facility]) 3 Assessment & Plan (01/19/2023 11:52 AM EST): Doing well. No relapse or cravings. Feels like increasing dose of topiramate may be helpful. Will do so and f/u. Provided support and motivational interviewing to continue in recovery. . Assessment & Plan (12/29/2022 12:11 PM EST): Doing well on baclofen and topiramate treatment. Reports treatment has helped with cravings. No recent relapse. Provided support and motivational interviewing to continue in recovery. . Assessment & Plan (12/08/2022 6:29 PM EST): Doing well on baclofen and topiramate treatment. Reports treatment has helped with cravings. No recent relapse. Provided support and motivational interviewing to continue in recovery. . Anxiety 12/08/2022 Assessment & Plan (12/08/2022 6:30 PM EST): Stable on vistaril. The current medical regimen is effective; continue present plan and medications. Obstructive airway disease ([facility]) 12/08/2022 Assessment & Plan (12/08/2022 6:30 PM EST): Reports hx of needing inhaler for treating wheezing and SOB. Suspect COPD based on hx. Recommend f/u with PCP and referral for PFTs. Cont albuterol for now. Resolved Problems Problem Noted Date Diagnosed Date Resolved Date Cervical cancer screening 01/19/2023 Assessment & Plan (01/19/2023 11:53 AM EST): Pap smear completed today. Immunizations Name Administration Dates Next Due Flu, Preservative Free 12/08/2022 HEP A-HEP B 02/16/2023,12/29/2022 PNEUMOCOCCAL CONJUGATE PCV 20 (Prevnar) 12/29/19 23 TDAP 12/08/2022 ZOSTER VACCINE, RECOMBINANT (SHINGRIX) 3,12/08/2022 Social History Tobacco Use Types Packs/Day Years Used Date Smoking Tobacco: Every Day Cigarettes Started: 08/2000 Smokeless Tobacco: Never Tobacco Cessation:Ready to Q uit: Yes; Counseling Given: Yes Social Connections Answer Date Recorded Connectedness 0 08/01/2024 Financial Resource Strain Answer Date R ecorded Financial Resource Strain 0 2022 Stress Answer Date Recorded Stress 0 12/07/2022 Physical Activity Answer Date Recorded Physical Activity 0 12/07/2022 Food Insecurity Answer Date Recorded Food 0 12/08/2022 Transportation Needs Answer Date Record ed Transportation 0 12/08/2022 Housing Stability Answer Date Recorded Housing 0 12/08/2022 Safety and Environment Answer Date Jose rded Safety 0 12/07/2022 Utilities Answer Date Recorded Utilities 0 12/08/2022 Employment Answer Date Recorded Stress 0 12/08/2022 Comments No Sex and Gender Information Value Date Recorded Sex Assigned at Female 12/08/2022 3:37 PM PST Legal Sex Female 10:44 AM PST Gender Identity Female 12/08/2022 3:37 PM PST Sexual Orientation Straight 12/08/2022 3: 37 PM PST Last Filed Vital Signs Vital Sign Reading Time Taken Comments Blood Pressure 98/65 02/16/2023 9:41 AM EDT Pulse 74 02/16/2023 9:41 AM EDT Temperature 36.1 ??C (96.9 ??F) 12/29/2022 11:[address] Respiratory Rate - - Oxygen Saturation 93% 01/19/2023 11:47 AM EST Inhaled Oxygen Concentration - - Weight 64.4 kg (142 lb) 02/16/2023 9:41 AM EDT Height 172.7 cm (5' 8 ) 02/16/2023 9:41 AM EDT Body Mass Index 21.59 02/16/2023 9:41 AM EDT Plan of Treatment Health Maintenance Due Date Last Done Comments HPV Screening 1964 LTBI Screening (#1) 1964 Annual Preventive Care Visit 1982 Breast Cancer Screening (Mammogram) 2004 CT Colonography 2009 Colonoscopy 2009 Colorectal Cancer Screening 2009 FIT/gFOBT 2009 Fecal DNA 2009 Flexible Sigmoidoscopy 2009 Depression Monitoring 03/08/2023 12/08/2022 Imm-Hepatitis A (3 of 3 - He p A Twinrix risk 3-dose series) 07/19/2023 02/16/2023, 12/29/2022 Imm-Hepatitis B (3 of 3 - He p B Twinrix 3-dose series) 07/19/2023 02/16/2023, 12/29/2022 Lipid Screening 12/08/2023 12/08/2022 Hypertension Screening (#1) 02/16/2024 Tobacco Screening 02/17/2024 02/16/2023, , 12/29/2022, Additional history exists Tobacco Cessation Counseling (#1) 07/23/2024 02/16/2023, 01/19/2023, 12/29/2022, Additional history exists [id number] () 07/27/2024 Imm-Influenza (#1) 2024 12/08/2022 Alcohol and Drug Screen 11/26/2024 12/08/2022 Diabetes Screening 12/08/2025 12/08/2022 Pap Smear 01/19/2026 01/19/2023 Cervical Cancer Screening 01/19/2028 Pap + HPV 01/19/2028 01/19/2023 Imm-DTaP/Tdap/Td (2 - Td or Tdap) 12/08/2032 023 Imm-Pneumococcal Completed 12/29/2022 HIV Screening Completed 02/12/2023, 12/08/2022 Hepatitis C Screening Completed 02/12/2023 , 02/12/2023, 12/08/2022 Imm-Zoster, Recombinant Completed 02/16/2023, 12/08 Cervical Ablation/Cold-Knife Conization Discontinued Cervical Cryotherapy Discontinued Colposcopy Discontinued Endometrial Biopsy Discontinued Excision/Leep Discontinued HPV Genotyping Discontinued Vaginal Pap Discontinued Vulvoscopy Discontinued Procedures Procedure Name Priority Date/Time Associated Diagnosis Comments HIV AG/AB Routine 02/12/2023 Encounter for human immunodeficiency virus (HIV) counseling HEPATITIS C VIRAL LOAD, ABSTRACTED Routine 02/12/2023 Encounter for human immunodeficiency virus (HIV) counseling [facility] PAP + E6/E7HPV MRNA Routine 01/19/2023 11:26 AM EST HEMOGLOBIN GLYCOSYLATED A1C Routine 12/08/2022 11:08 AM EST Sheltered homelessness LIPID PANEL Routine 12/08/2022 11:08 AM EST Sheltered homelessness from Last 3 Months or Most Recently Relevant to Health Maintenance Results * HEPATITIS C VIRAL LOAD, ABSTRACTED (02/12/2023) HEP C QUANT Non-Reacti ve Non-Reactive - Reactive PIEDAD Martinez [facility] Blood Blood / Unknown 02/12/2023 us Preeti Ellsworth MD LAB - BLOOD DRAW Final Resul t Performing Organization Address City/[facility]/ZIP Co de Phone Number PIEDAD Martinez [facility] [address] [place] [address], [place] [phone] * HIV AG/AB (02/12/2023) HIV AG/AB Non-Reacti ve Non-Reactive - Reactive PIEDAD Martinez [facility] Blood Blood / Unknown 02/12/2023 us Preeti Ellsworth MD LAB - BLOOD DRAW Final Resul t Performing Organization Address [facility] Co de Phone Number PIEDAD Martinez [facility] [address] [place] [address], * [facility] PAP + HR HPV DNA (01/19/2023 11:26 AM EST) CLINICAL INFORMATION See Note [facility] ([facility]) Comment:Postmenopausal LMP See Note [facility]) Comment:11/26/2018 PREV. PAP See Note [facility]) Comment:NONE GIVEN PREV. BX See Note [facility]) Comment:NONE GIVEN SOURCE See Note [facility] ([facility]) Comment:Cervix STATEMENT OF ADEQUACY See Note [facility] ([facility]) Comment: Satisfactory for evaluation. Endocervical/transformation zone component present. INTERPRETATION/RESU LT See Note [facility]) Comment:Negative for intraep ithelial lesion or malignancy. COMMENT See Note [facility]) Comment: This Pap test has been evaluated with computer assisted technology. MEAT SUPERVISOR See Note [facility] Comment: [place], CT(ASCP) For informational purposes: All Cytology specimens are processed and screened at [facility]. [facility] [facility], [place] [address] COMMENT [facility] ([facility]) HPV MRNA E6/E7, [facility] VIAL Not Detected NOT DETECTED [employer] Comment: Methodology: Sommelier-Mediated Amplification ? This assay detects E6/E7 viral messenger RNA (mRNA) from 14 high-risk HPV types (16,18,31,33,35,39,45,51,52,56,58,59,66,68). Cervical sources are required for HPV testing. If a vaginal source from a patient who has had a total hysterectomy with removal of cervix was submitted, please contact the testing laboratory for alternative testing options. For additional information, please refer to http://education.LightArrow/faq/RKO581p2 (This link if provided for information/ educational purposes only.) 01/19/2023 11:2 6 AM EST 01/22/2023 5:39 AM EST Narrative [employer] - 01/26/2023 10:20 AM EST EXPLANATORY NOTE: The Pap is a screening test for cervical cancer. It is not a diagnostic test and is subject to false negative and false positive results. It is most reliable when a satisfactory sample, regularly obtained, is submitted with relevant clinical findings and history, and when the Pap result is evaluated along with historic and current clinical information. us Karen Ann MD LAB - NO BLOOD DRAW Final Resul t [employer] [address] [place] [id number], [facility] ([facility]) [address] [place] [phone] [employer] [address] ([facility]) [place] [address] * HEMOGLOBIN GLYCOSYLATED A1C (12/08/2022 11:08 AM EST) HEMOGLOBIN A1C 5.3 <5.7 % of total Hgb [employer] Comment: For the purpose of screening for the presence of diabetes: <5.7% ? Consistent with the absence of diabetes 5.7-6.4% ?Consistent with increased risk for diabetes ?(prediabetes) > or =6.5% ??Consistent with diabetes This assay result is consistent with a decreased risk of diabetes. Currently, no consensus exists regarding use of hemoglobin A1c for diagnosis of diabetes in children. According to [place] [employer] (ADA) guidelines, hemoglobin A1c <7.0% represents optimal control in non- diabetic patients. Different metrics may apply to specific patient populations. Standards of Medical Care in Diabetes(ADA). ?? Blood Blood / Unknown 12/08/2022 1 1:08 AM EST 12/09/2022 8:48 AM EST us Karen Ann MD LAB - BLOOD DRAW Edited Result - Final [employer] [address] [facility] [address] [place] [address], [employer] [facility] [address] [place] (NL2) [place] [address] * (ABNORMAL) LIPID PANEL (12/08/2022 11:08 AM EST) CHOLESTEROL, TOTAL 300(H) <200 mg/dL [employer] [facility] HDL CHOLESTEROL 47(L) > OR = 50 mg/dL [employer] TRIGLYCERIDES 129 <150 mg/dL [employer] [facility] LDL-CHOLESTEROL 226(H) 99 mg/dL (calc) [employer] Comment: LDL-C levels > or = 190 mg/dL may indicate familial hypercholesterolemia (FH). Clinical assessment and measurement of blood lipid levels should be considered for all first degree relatives of patients with an FH diagnosis. For questions about testing for familial hypercholesterolemia, please call [employer] Client Services at 1.404.[employer].INFO. Carlos T, et al. J National Lipid Association Recommendations for Patient-Centered Management of Dyslipidemia: Part 1 Journal of Clinical Lipidology 2015;9(2), 129-169. Reference range: <100 Desirable range <100 mg/dL for primary prevention; ?? <70 mg/dL for patients with CHD or diabetic patients with > or = 2 CHD risk factors. LDL-C is now calculated using the Jf-Osmany calculation, which is a validated novel method providing better accuracy than the Friedewald equation in the estimation of LDL-C. Jf MACDONALD et al. ANKUSH. 2013;310(19): 9159-5895 (http://education.VOZ/faq/KPG490) CHOL/HDLC RATIO 6.4(H) <5.0 (calc) [employer] [facility] NON-HDL CHOLESTEROL 253(H) <130 mg/dL (calc) [employer] Comment: Non-HDL level > or = 220 is very high and may indicate genetic familial hypercholesterolemia (FH). Clinical assessment and measurement of blood lipid levels should be considered for all first-degree relatives of patients with an FH diagnosis. For patients with diabetes plus 1 major ASCVD risk factor, treating to a non-HDL-C goal of <100 mg/dL (LDL-C of <70 mg/dL) is considered a therapeutic option. Blood Blood / Unknown 12/08/2022 1 1:08 AM EST 12/09/2022 8:48 AM EST Karen Ann MD LAB - BLOOD DRAW Final Result [employer] [place] [address] [facility] [address] [place] [address], [employer] [place] [address] [facility] (NL2) [place] [address] from Last 3 Months or Most Recently Relevant to Health Maintenance Insurance [facility] DENTAL [facility] Member Subscriber Plan / Payer (Ef fective 2022-Present) Name:Ani Zuñiga Relation to Subscriber:Self Name:Ani Zuñiga Payer ID:[id number] Group ID:Not on file Type:Medicaid Address: [address] [address] [place] [address] Care Teams Electric Fan Assembler Relationship Specialty Start Date End Date Karen Ann MD [address] [place] [address] PCP - General Internal Medicine 01/19/23
== END 2024-12-19 10:53 | disposition home or self-care (01) ==
LOC: HO.CT 10:52
PROVIDERS: PCP Internal Medicine; Visit Provider Physician Assistant Medical
DX: Z12.2 Encounter for screening for malignant neoplasm of respiratory organs (principal); F17.210 Nicotine dependence, cigarettes, uncomplicated
CPT/HCPCS: 71271

== ENCOUNTER 2025-02-10 10:14 | Outpatient (REF) | payer OTHER, SELFPAY ==
[2025-02-10 14:12] LABS: Alanine Aminotransferase 23 U/L (0-31); Albumin Level 4.2 g/dL (3.5-5.0); Alkaline Phosphatase 111 U/L (39-117); Anion Gap 15 (12-20); Aspartate Amino Transferase 28 U/L (5-31); Bilirubin Total 0.3 mg/dL (0.0-1.0); Blood Urea Nitrogen 12 mg/dL (9-16); Calcium 9.9 mg/dL (8.4-10.2); Carbon Dioxide 25 mmol/L (22-29); Chloride 106 mmol/L (96-108); Cholesterol 249 mg/dL (<200); Estimated Glomerular Filt Rate > 60; Glucose Random 95 mg/dL (60-115); HDL Cholesterol 32 mg/dL (>40); LDL Cholesterol Calculated 151 mg/dL (<100); Sodium 141 mmol/L (135-145); Total Protein 8.2 g/dL (6.5-8.0); Triglycerides 333 mg/dL (<150)
== END 2025-02-10 10:15 | disposition home or self-care (01) ==
LOC: HO.10HDL 10:14
PROVIDERS: Visit Provider Internal Medicine
DX: Z00.00 Encounter for general adult medical examination without abnormal findings (principal); E78.00 Pure hypercholesterolemia, unspecified; I71.20 Thoracic aortic aneurysm, without rupture, unspecified; F17.201 Nicotine dependence, unspecified, in remission; Z82.49 Family history of ischemic heart disease and other diseases of the circulatory system
CPT/HCPCS: 36415; 80053; 80061

== ENCOUNTER → 2025-04-03 13:55 | Outpatient (REF) | payer OTHER, SELFPAY ==
--- NOTE | 2025-04-03 13:57 | CA_ITS ---
Transthoracic Echocardiogram Patient (Last, First, Middle): Ani Zuñiga J Gender: Female Date of : 1965 Age: 60 Procedure Date: 04/03/2025 Procedure Type: Transthoracic Echocardiogram Location: OP Height: 172.72 cm Weight: 71.67 kg BSA: 1.85 m2 Heart Rate: bpm BP: 118 / 58 mmHg Apprentice Carpenter: Referring MD: Max Raymundo MD Symptoms: I71.21 - Aneurysm of the ascending aorta, without rupture Study Quality: Good ECG Rhythm: Sinus Conclusions: - The left ventricular systolic function is normal. The calculated ejection fraction is 57% by biplane method. - There is moderate aortic valve stenosis. - There is moderate dilatation of the ascending aorta measuring 4.60 cm. Findings Left Ventricle Normal left ventricular cavity size. There is normal left ventricular wall thickness. The left ventricular systolic function is normal. The calculated ejection fraction is 57% by biplane method. There is no evidence of regional wall motion abnormalities. Diastolic function is normal for age. Right Ventricle Normal right ventricular cavity size and systolic function. Atria Both atria are normal in size. Aortic Valve The aortic valve was not well visualized. There is moderate calcification of the aortic valve. There is moderate aortic valve stenosis. There is mild aortic valve regurgitation. Cannot exclude bicuspid valve. Mitral Valve The anterior mitral leaflet has restricted mobility. There is no mitral valve regurgitation. There is no mitral valve stenosis. Pulmonic Valve The pulmonic valve is likely normal. Tricuspid Valve There is trace tricuspid valve regurgitation. There is no evidence of pulmonary hypertension. Great Vessels The sinuses of valsalva is normal in size. There is moderate dilatation of the ascending aorta measuring 4.60 cm. Venous The inferior vena cava is mildly dilated and collapses greater than 50% with inspiration. Pericardium/Pleural There is no evidence of pericardial effusion. Prior Study Comparison No significant change compared to prior study dated: 06/04/2024. Measurements 2D Linear Measurements IVSd: 0.85 0.6-0.9/0.6-1.0 cm LVIDd: 4.62 3.9-5.3/4.2-5.9 cm LVIDd Index: 2.50 2.4-3.2/2.2-3.1 cm/m2 LVIDs: 3.09 2.0-3.6 cm LVPWd: 1.03 0.7-1.1 cm Ao Root: 4.20 2.1-3.5 cm LA Diam: 2.80 2.7-3.8/3.0-4.0 cm LAIDs Index: 1.51 1.5-2.3 cm/m2 LV Mass: 182.53 67-162/88-224 g LV Mass Index: 98.66 43-95/49-115 g/m2 LVOT Diam: 2.30 3.0+(-)1.3 cm 2D Systolic Function EF 4C: 56.30 >55% EF 2C: 60.10 >55% EF BiP: 56.60 >55% Mitral Valve MV VTI: 0.12 MV Pk Aaron: 0.54 MV Mn Aaron: 0.29 MV Pk Grad: 1.00 MV Mn Grad: 0.00 MV Pk E: 0.33 MV PK A: 0.59 MV Decel Time: 128.00 E/A: 0.60 E'Lateral: 4.13 E'Medial: 4.03 E/E' Med: 8.30 E/E' Lat: 8.10 PHT: 38.00 MVA PHT: 5.79 MVA Continuity: 7.69 Decel Beckham: 2.60 Aortic Valve AoV Pk Aaron: 3.19 AoV Mn Aaron: 2.31 AoV VTI: 0.75 AoV Pk Grad: 41.00 Aov Mn Grad: 24.00 HERNESTO Cont.VTI: 1.20 AI Pk Aaron: 3.66 AI VTI: 1.39 AI Beckham: 3.99 LVOT LVOT Pk Aaron: 0.81 LVOT Mn Aaron: 0.58 LVOT VTI: 0.22 LVOT Pk Grad: 3.00 LVOT Mn Grad: 2.00 LVOT Diam: 2.30 LVOT Area: 4.15 Diastolic Function MV Pk E: 0.33 MV Pk A: 0.59 E/A: 0.60 E'Medial: 4.03 E/E' Med: 8.30 E' Laterial: 4.13 E/E' Lat: 8.10 Right Ventricle TAPSE (mm): 26.00 TVS' Aaron: 12.00 Tricuspid Valve TR Pk Aaron: 2.79 TR Pk Grad: 31.00 RA Press: 3.00 RVSP: 34.00 Great Vessels Aorta Ao Root-2D: 4.20 2.0-3.7 cm Ao Asc: 4.60 2.1-3.4 cm Pulmonary Valve PV Pk Aaron: 0.73 Peak PV Grad: 2.00 Updated in Other Vendor System with Status of Final Max Raymundo MD electronically signed on 04/04/2025 1:20:04 PM with status of Final
--- OUTSIDE RECORDS SUMMARY | 2025-04-03 13:59 | XMS_ITS | Clinical Summary ---
Author Organization [facility] Address [address] [place] [address] Care Team Providers Care Cooking Instructor Name Role Phone Karen Ann MD Primary Care Provider [phone] Source Comments PLEASE NOTE, if this patient [...] 10 mg/mL concentrated solution 50 mg daily. [facility]. 0 3 Active acetaminophen (TYLENOL) 325 mg [...] CP. Will refer for f/u TTE @ [facility] Cardiovascular event risk 12/15/2022 Overview (12/15/2022): Patient's [...] for this encounter. [facility] [place] and working with support services to find stable housing and income opportunities. Given complex limitations of homelessness, provided care as appropriate. Will continue to support as possible. Assessment & Plan (01/19/2023 11:53 AM EST): Patient is currently experiencing homelessness as documented in homeless status for this encounter. Pt currently [facility] [place] and working with support services to find stable housing and income opportunities. Given complex limitations of homelessness, provided care as appropriate. Will continue to support as possible. Assessment & Plan (12/29/2022 12:10 PM EST): Patient is currently experiencing homelessness as documented in homeless status for this encounter. Pt currently staying [facility] [place] and working with support services to find stable housing and income opportunities. Given complex limitations of homelessness, provided care as appropriate. Will continue to support as possible. Assessment & Plan (12/15/2022 1:58 PM EST): Patient is currently experiencing homelessness as documented in homeless status for this encounter. Pt currently [facility] [place] and working with support services to find stable housing and income opportunities. Given complex limitations of homelessness, provided care as appropriate. Will continue to support as possible. Assessment & Plan (12/08/2022 6:28 PM EST): Patient is currently experiencing homelessness as documented in homeless status for this encounter. Pt currently staying @ [facility] in [place] and working with support services to find stable housing and income opportunities. Given complex limitations of homelessness, provided care as appropriate. Will continue to support as possible. Opioid use disorder, severe ([facility]) 12/08/2022 Assessment & Plan (02/16/2023 1:16 PM [...] for daily transport from residential program to [facility]. Provided support and motivational interviewing to continue in recovery. . Assessment & Plan (12/08/2022 6:28 PM EST): Stable on methadone @ [facility]. Provided support and motivational interviewing to continue [...] noted. Aneurysm of ascending aorta without rupture (PAC E-HCC V24) 12/08/2022 Overview (01/19/2023): (May 2022) Incidental finding on neck CT with 4.5 x 4.4 cm fusiform aneurysm of the ascending thoracic aorta/ f/u noncontrast CT of the chest which showed complete visualization of 4.7 cm ascending aortic aneurysm (Dec 2022) Repeat Chest CT @ [facility]. Ectasia of the ascending aorta measuring 4.4 cm. Calcified aortic valve. Recommend TTE and annual follow up CT in 1 year with ECG gated chest CTA [facility] Vasc Sgy appt 04/20/2023, 11:30AM Assessment & Plan (02/16/2023 1:03 PM EDT): (May 2022) Incidental finding on neck CT with 4.5 x 4.4 cm fusiform aneurysm of the ascending thoracic aorta/ f/u noncontrast CT of the chest which showed complete visualization of 4.7 cm ascending aortic aneurysm (Dec 2022) Repeat Chest CT @ [facility]. Ectasia of the ascending aorta measuring 4.4 cm. Calcified aortic valve. Recommend TTE (scheduled for next week) and annual follow up CT in 1 year with ECG gated chest CTA [facility] 02/20/23 [facility] Vasc Sgy appt 04/20/2023, 11:30AM Cont statin. BP well controlled off meds. Encourage smoking cessation. Assessment & Plan (01/19/2023 11:49 AM EST): (May 2022) Incidental finding on neck CT with 4.5 x 4.4 cm fusiform aneurysm of the ascending thoracic aorta/ f/u noncontrast CT of the chest which showed complete visualization of 4.7 cm ascending aortic aneurysm (Dec 2022) Repeat Chest CT @ [facility]. Ectasia of the ascending aorta measuring 4.4 cm. Calcified aortic valve. Recommend TTE and annual follow up CT in 1 year with ECG gated chest CTA [facility] Vasc Sgy appt 04/20/2023, 11:30AM Cont statin. BP well controlled off meds. Encourage smoking cessation. Assessment & Plan (12/29/2022 12:06 PM EST): Awaiting vasc sgy appt at [facility]. Cont on statin. BP well controlled. Encouraged smoking cessation and repeat CT chest. Assessment & Plan (12/15/2022 1:57 PM EST): Awaiting vasc sgy appt at [facility]. Cont on statin. BP well controlled. Encouraged [...] chest and refer to vasc sgy @ [facility]. Encourage smoking cessation and start statin. BP well controlled off treatment with SBPs in 90 so not really any room to add ERENDIRA inhibitor or other anti-HTN. Close f/u. Healthcare maintenance 12/08/2022 Assessment & Plan (02/16/2023 1:16 PM EDT): Shingle vax #2 today and HAV/HBV vax #2. Assessment & Plan (01/19/2023 11:53 AM EST): GI @ [facility] wants [facility] sgy to see pt before scheduling colonoscopy. Referred for mammogram. Awaiting scheduling at [facility] Assessment & Plan (12/29/2022 12:11 PM EST): [...] working on scheduling. Referred for colonoscopy to [facility] as well. Assessment & Plan (12/15/2022 2:01 PM EST): HAV/HBV vaccine today. Referral for mammogram at [facility]. Needs to complete colon ca and cervical ca screening as well. Assessment & Plan (12/08/2022 6:28 PM EST): Shingles, flu, tdap vax today. Check baseline labs. Will work with PCP to schedule mammogram, colon ca screening, and pap smear. Moderate episode of recurren t major depressive disorder ([facility]) 12/08/2022 Assessment & Plan (12/29/2022 12:10 PM [...] f/u with PCP. Cocaine use disorder, severe ([facility]) 3 Assessment & Plan (01/19/2023 11:52 AM [...] present plan and medications. Obstructive airway disease ([facility]) 12/08/2022 Assessment & Plan (12/08/2022 6:30 PM EST): Reports hx of needing inhaler for treating wheezing and SOB. Suspect COPD based on hx. Recommend f/u with PCP and referral for PFTs. Cont albuterol for now. Resolved Problems Problem Noted Date Diagnosed Date Resolved Date Cervical cancer screening 01/19/2023 Assessment & Plan (01/19/2023 11:53 AM EST): Pap smear completed today. Immunizations Immunization Administration Dates Next Due Flu, Preservative Free 12/08/2022 HEP A-HEP B ([facility]) 02/16/2023,12/29/2022 PNEUMOCOCCAL CONJUGATE PCV 20 (Prevnar) 12/29/19 [...] Health Maintenance Due Date Last Done Comments Anxiety Screening 1965 12/08/2022 HPV Screening 1965 LTBI Screening (#1) 1965 Breast Cancer Screening (Mammogram) 2004 CT Colonography [...] 07/23/2024 02/16/2023, 01/19/2023, 12/29/2022, Additional history exists [id number] ( season) 2024 Imm-Influenza (#1) 2024 12/08/2022 Alcohol and Drug [...] Non-Reacti ve Non-Reactive - Reactive PIEDAD Martinez [facility] Blood Blood / Unknown 02/12/2023 us Preeti Ellsworth MD LAB - BLOOD DRAW Final Resul t Performing Organization Address City/[facility]/ZIP Co de Phone Number PIEDAD Martinez [address] [address], * HIV AG/AB (02/12/2023) HIV AG/AB Non-Reacti ve Non-Reactive - Reactive PIEDAD Martinez [facility] Blood Blood / Unknown 02/12/2023 Preeti Ellsworth MD LAB - BLOOD DRAW Final Resul t Performing Organization Address [facility] Co de Phone Number PIEDAD Martinez [address] [address], * [facility] FPGS PAP + HR HPV DNA (01/19/2023 11:26 AM EST) Pathologist [facility] CLINICAL INFORMATION See Note [facility] ([facility]) Comment:Postmenopausal LMP See Note [facility]) Comment:11/26/2018 PREV. PAP See Note [facility] ([facility]) Comment:NONE GIVEN PREV. BX See Note [facility] ([facility]) Comment:NONE GIVEN SOURCE See Note [facility] ([facility]) Comment:Cervix STATEMENT OF ADEQUACY See Note [facility] ([facility]) Comment: Satisfactory for evaluation. Endocervical/transformation zone component present. INTERPRETATION/RESU LT See Note [facility] ([facility]) Comment:Negative for intraep ithelial lesion or malignancy. COMMENT See Note [facility] ([facility]) Comment: This Pap test has been evaluated with computer assisted technology. SENIOR INDUSTRIAL ENGINEER See Note [facility]) Comment: KAUSHAL CT(ASCP) For informational purposes: All Cytology specimens are processed and screened at [facility]. [address] [facility], [place] [address] COMMENT [facility] ([facility]) HPV MRNA E6/E7, [facility] VIAL Not Detected NOT DETECTED [facility] Comment: Methodology: Manager Energy-Mediated Amplification ? This assay detects E6/E7 viral messenger RNA (mRNA) from 14 high-risk HPV types (16,18,31,33,35,39,45,51,52,56,58,59,66,68). Cervical sources are required for HPV testing. If a vaginal source from a patient who has had a total hysterectomy with removal of cervix was submitted, please contact the testing laboratory for alternative testing options. For additional information, please refer to http://education.Relativity Technologies/faq/DDQ615k2 (This link if provided for information/ educational purposes only.) 01/19/2023 11:2 6 AM EST 01/22/2023 5:39 AM EST Narrative [employer] - 01/26/2023 10:20 AM EST EXPLANATORY NOTE: [...] - NO BLOOD DRAW Final Resul t [employer] [address] [place] [id number], [facility] ([facility]) [address] [place] [phone] [facility] [address] [facility] [address] ([facility] [place] [address] * HEMOGLOBIN GLYCOSYLATED A1C (12/08/2022 11:08 AM EST) HEMOGLOBIN A1C 5.3 <5.7 % of total Hgb [facility] Comment: For the purpose of screening for the presence of diabetes: <5.7% ? Consistent with the absence of diabetes 5.7-6.4% ?Consistent with increased risk for diabetes ?(prediabetes) > or =6.5% ??Consistent with diabetes This assay result is consistent with a decreased risk of diabetes. Currently, no consensus exists regarding use of hemoglobin A1c for diagnosis of diabetes in children. According to [place] Diabetes Association (ADA) guidelines, hemoglobin A1c <7.0% represents optimal control in non- diabetic patients. Different metrics may apply to specific patient populations. Standards of Medical Care in Diabetes(ADA). ?? Blood Blood / Unknown 12/08/2022 1 1:08 AM EST 12/09/2022 8:48 AM EST Karen Ann MD LAB - BLOOD DRAW Edited Result - Final [employer] [facility] [address] [facility] [address] [place] [address], [employer] [facility] [address] [facility] (NL2) [place] [address] * (ABNORMAL) LIPID PANEL (12/08/2022 11:08 AM EST) CHOLESTEROL, TOTAL 300(H) <200 mg/dL [facility] HDL CHOLESTEROL 47(L) > OR = 50 mg/dL [facility] TRIGLYCERIDES 129 <150 mg/dL [employer] [facility] LDL-CHOLESTEROL 226(H) 99 mg/dL (calc) [employer] [facility] Comment: LDL-C levels > or = 190 mg/dL may indicate familial hypercholesterolemia (FH). Clinical assessment and measurement of blood lipid levels should be considered for all first degree relatives of patients with an FH diagnosis. For questions about testing for familial hypercholesterolemia, please call [employer] Client Services at 1.514.[employer].INFO. Carlos T, et al. J National Lipid [...] LDL-C. Jf MACDONALD et al. ANKUSH. 2013;310(19): 5875-4648 (http://education.Heyzap/faq/JRT448) CHOL/HDLC RATIO 6.4(H) <5.0 (calc) [employer] NON-HDL CHOLESTEROL 253(H) <130 mg/dL (calc) [employer] Comment: Non-HDL level > or = 220 [...] MD LAB - BLOOD DRAW Final Result [employer] [facility] [address] [place] [address] [address] [place] [address], [employer] [place] [facility] [address] [place] [address] (NL2) [place] [address] from Last 3 Months or Most Recently Relevant to Health Maintenance Insurance [facility] [address] [address] HEALTH PLAN Member Subscriber Plan / Payer (Ef fective 2022-Present) Name:Ani Zuñiga Relation to Subscriber:Self Name:Ani Zuñiga Payer ID:[id number] Group ID:Not on file Type:Medicaid Address: [address] [address] [place] [address] Care Teams Cooking Instructor Relationship Specialty Start Date End Date Karen Ann MD [address] [place] [phone] PCP - General Internal Medicine 01/19/23
== END ==
LOC: HO.CARD 13:55
PROVIDERS: PCP Internal Medicine; Visit Provider Internal Medicine
DX: Q23.1 Congenital insufficiency of aortic valve (principal); I71.21 Aneurysm of the ascending aorta, without rupture
CPT/HCPCS: 93306

== ENCOUNTER → 2025-04-03 13:57 | Outpatient (BNV) | payer OTHER, SELFPAY | PROVIDERS: PCP Internal Medicine; Visit Provider Internal Medicine | DX: I35.2 Nonrheumatic aortic (valve) stenosis with insufficiency (principal); I34.1 Nonrheumatic mitral (valve) prolapse; I71.21 Aneurysm of the ascending aorta, without rupture | CPT/HCPCS: 93306 ==

== ENCOUNTER 2025-06-17 13:03 | Outpatient (REF) | payer OTHER, SELFPAY ==
--- NOTE | ~2025-06-17 | CT_ITS ---
EXAMINATION: CT LOW-DOSE SCREENING CHEST WITHOUT CONTRAST CLINICAL INFORMATION: 60-year-old female, current smoker, 46 pack years, lung cancer screening. COMPARISON: 12/19/2024. TECHNIQUE: Multidetector volumetric CT imaging of the chest is performed on a Siemens SOMATOM Definition scanner without contrast using low dose technique. Additional 2D coronal and sagittal reformatted images and axial 3D maximum intensity projection (MIP) images are generated on the CT workstation. This CT examination was performed using dose optimization techniques as appropriate, variously including the following: *Automated exposure control *Adjustment of mA and/or kV according to patient size (this includes techniques or standardized protocols for targeted exams where dose is matched to indication/reason for exam; i.e. extremities or head) *Use of iterative reconstruction technique FINDINGS: PULMONARY NODULES: -4 mm nodule right lower lobe (series 5, image 90), new from prior. -8 x 3 mm lingular segment linear nodular opacity (series 5, image 94), unchanged. -No additional new or enlarging pulmonary nodule. LUNGS: -Moderate centrilobular emphysema with upper lobe predominance. -Medial right middle lobe small focus of tree-in-bud nodules, similar to prior. -Linear discoid atelectasis versus scarring in the bilateral lower lobes and lingular segment, unchanged. -No effusion or pneumothorax. -Small airways are normal without thickening. -Minor fibrosis abutting the right aspect of the vertebral column. MEDIASTINUM: Ascending aortic aneurysm measuring up to 4.7 cm, unchanged. -No adenopathy or mass. -Normal thyroid. -Main pulmonary artery is normal in size. -Aortic annular calcifications. -Heart size is normal. No pericardial effusion. CORONARY ARTERY CALCIFICATION: Mild. CHEST WALL/AXILLA: -No mass or adenopathy. UPPER ABDOMEN: -Included portions of the solid organs in the upper abdomen unremarkable on noncontrast imaging. OSSEOUS STRUCTURES: -No suspicious lytic or blastic bone lesions. -There are moderate degenerative spinal changes. CT/CT lung screening IMPRESSION: 1. There is a new 4 mm nodule in the right lower lobe. 2. There are otherwise stable pulmonary nodules without additional new or enlarging nodule. 3. There is moderate centrilobular emphysema. There are stable scarring in the bilateral lower lobes and lingula. 4. There is a stable 4.7 cm ascending aortic aneurysm. ASSESSMENT: 1. Lung-RADS Category 3: Probably benign findings. New 4 mm right lower lobe nodule. 2. Lung-RADS Category S: None. RECOMMENDATION: A 6-month follow up low-dose lung CT scan is recommended. An order for CT LUNG CANCER SCREENING SHORT INTERVAL FOLLOWUP ([id number]) can be placed. Electronically signed by: Malik Calderon MD 06/17/2025 01:55 PM EDT
--- OUTSIDE RECORDS SUMMARY | 2025-06-17 13:30 | XMS_ITS | Clinical Summary ---
Author Organization [facility] Address [address] [place] [address] Care Team Providers Care Manager Park Name Role Phone Karen Ann MD Primary Care Provider [phone] Source Comments PLEASE NOTE, if this patient [...] 10 mg/mL concentrated solution 50 mg daily. [facility]. 0 3 Active acetaminophen (TYLENOL) 325 [...] CP. Will refer for f/u TTE @ [facility] Cardiovascular event risk 12/15/2022 Overview (12/15/2022): Patient's [...] for this encounter. Pt [facility] [place] and working with support services to find stable housing and income opportunities. Given complex limitations of homelessness, provided care as appropriate. Will continue to support as possible. Assessment & Plan (01/19/2023 11:53 AM EST): Patient is currently experiencing homelessness as documented in homeless status for this encounter. Pt currently staying @ [facility] in [place] and working with support services to find stable housing and income opportunities. Given complex limitations of homelessness, provided care as appropriate. Will continue to support as possible. Assessment & Plan (12/29/2022 12:10 PM EST): Patient is currently experiencing homelessness as documented in homeless status for this encounter. Pt currently staying @ [facility] in [place] and working with support services to find stable housing and income opportunities. Given complex limitations of homelessness, provided care as appropriate. Will continue to support as possible. Assessment & Plan (12/15/2022 1:58 PM EST): Patient is currently experiencing homelessness as documented in homeless status for this encounter. Pt currently staying @ [facility] in [place] and working with support services to find stable housing and income opportunities. Given complex limitations of homelessness, provided care as appropriate. Will continue to support as possible. Assessment & Plan (12/08/2022 6:28 PM EST): Patient is currently experiencing homelessness as documented in homeless status for this encounter. Pt currently staying @ [facility] in [place] and working with support services to find stable housing and income opportunities. Given complex limitations of homelessness, provided care as appropriate. Will continue to support as possible. Opioid use disorder, severe ([facility]) 11/26 Assessment & Plan (02/16/2023 1:16 PM EDT): [...] for daily transport from residential program to [facility]. Provided support and motivational interviewing to continue in recovery. . Assessment & Plan (12/08/2022 6:28 PM EST): Stable on methadone @ [facility]. Provided support and motivational interviewing to continue [...] noted. Aneurysm of ascending aorta without rupture ([facility]24) 12/08/2022 Overview (01/19/2023): (May 2022) Incidental finding on neck CT with 4.5 x 4.4 cm fusiform aneurysm of the ascending thoracic aorta/ f/u noncontrast CT of the chest which showed complete visualization of 4.7 cm ascending aortic aneurysm (Dec 2022) Repeat Chest CT @ [facility]. Ectasia of the ascending aorta measuring 4.4 cm. Calcified aortic valve. Recommend TTE and annual follow up CT in 1 year with ECG gated chest CTA [facility] Vasc Sgy appt 04/20/2023, 11:30AM Assessment & Plan (02/16/2023 1:03 PM EDT): (May 2022) Incidental finding on neck CT with 4.5 x 4.4 cm fusiform aneurysm of the ascending thoracic aorta/ f/u noncontrast CT of the chest which showed complete visualization of 4.7 cm ascending aortic aneurysm (Dec 2022) Repeat Chest CT @ [facility]. Ectasia of the ascending aorta measuring 4.4 cm. Calcified aortic valve. Recommend TTE (scheduled for next week) and annual follow up CT in 1 year with ECG gated chest CTA [facility] 02/20/23 [facility] Vasc Sgy appt 04/20/2023, 11:30AM Cont statin. BP well controlled off meds. Encourage smoking cessation. Assessment & Plan (01/19/2023 11:49 AM EST): (May 2022) Incidental finding on neck CT with 4.5 x 4.4 cm fusiform aneurysm of the ascending thoracic aorta/ f/u noncontrast CT of the chest which showed complete visualization of 4.7 cm ascending aortic aneurysm (Dec 2022) Repeat Chest CT @ [facility]. Ectasia of the ascending aorta measuring 4.4 cm. Calcified aortic valve. Recommend TTE and annual follow up CT in 1 year with ECG gated chest CTA [facility] Vasc Sgy appt 04/20/2023, 11:30AM Cont statin. BP well controlled off meds. Encourage smoking cessation. Assessment & Plan (12/29/2022 12:06 PM EST): Awaiting vasc sgy appt at [facility]. Cont on statin. BP well controlled. Encouraged smoking cessation and repeat CT chest. Assessment & Plan (12/15/2022 1:57 PM EST): Awaiting vasc sgy appt at [facility]. Cont on statin. BP well controlled. Encouraged [...] chest and refer to vasc sgy @ [facility]. Encourage smoking cessation and start statin. BP well controlled off treatment with SBPs in 90 so not really any room to add ERENDIRA inhibitor or other anti-HTN. Close f/u. Healthcare maintenance 12/08/2022 Assessment & Plan (02/16/2023 1:16 PM EDT): Shingle vax #2 today and HAV/HBV vax #2. Assessment & Plan (01/19/2023 11:53 AM EST): GI @ [facility] wants [facility] sgy to see pt before scheduling colonoscopy. Referred for mammogram. Awaiting scheduling at [facility] Assessment & Plan (12/29/2022 12:11 PM EST): [...] working on scheduling. Referred for colonoscopy to [facility] as well. Assessment & Plan (12/15/2022 2:01 PM EST): HAV/HBV vaccine today. Referral for mammogram at [facility]. Needs to complete colon ca and cervical ca screening as well. Assessment & Plan (12/08/2022 6:28 PM EST): Shingles, flu, tdap vax today. Check baseline labs. Will work with PCP to schedule mammogram, colon ca screening, and pap smear. Moderate episode of recurren t major depressive disorder ([facility]) 12/08/2022 Assessment & Plan (12/29/2022 12:10 PM [...] f/u with PCP. Cocaine use disorder, severe ([facility]) Assessment & Plan (01/19/2023 11:52 AM EST): [...] present plan and medications. Obstructive airway disease ([facility]) 12/08 Assessment & Plan (12/08/2022 6:30 PM EST): [...] B (TWINRIX) 02/16/2023,12/29/2022 PNEUMOCOCCAL CONJUGATE PCV 20 (Prevnar 20) 12/29 TDAP 12/08/2022 ZOSTER VACCINE, RECOMBINANT (SHINGRIX) 3,12/08/2022 [...] 74 02/16/2023 9:41 AM EDT Temperature 36.1 C (96.9 F) 12/29/2022 11:31 AM EST Respiratory Rate - - Oxygen Saturation 93% [...] B Twinrix 3-dose series) 07/19/2023 02/16/2023, 12/29/2022 Anxiety Screening 12/08/2023 12/08/2022 Lipid Screening 12/08/2023 12/08/2022 Hypertension Screening (#1) 02/16/2024 Tobacco Screening 02/17/2024 02/16/2023, , 12/29/2022, Additional history exists Tobacco Cessation Counseling (#1) 07/23/2024 02/16/2023, 01/19/2023, 12/29/2022, Additional history exists [id number] (1 - season) 2024 Alcohol and Drug Screen 11/26/2024 12/08/2022 Imm-Influenza (#1) 2025 12/08/2022 Diabetes Screening 12/08/2025 12/08/2022 Pap Smear 01/19/2026 01/19/2023 Cervical Cancer Screening 01/19/2028 Pap + HPV 01/19/2028 01/19/2023 Imm-DTaP/Tdap/Td (2 - Td or Tdap) 12/08/2032 023 Imm-Pneumococcal 50+ Completed 12/29/2022 HIV Screening Completed 02/12/2023, 12/08/2022 [...] Health Maintenance Results * HEPATITIS C VIRAL LOAD (02/12/2023) HEP C QUANT Non-Reacti ve Non-Reactive - Reactive PIEDAD Martinez [facility] Blood Blood / Unknown 02/12/2023 Preeti Ellsworth MD LAB - BLOOD DRAW Final Resul t Performing Organization Address City/[facility]/ZIP Co de Phone Number PIEDAD Martinez [address] [address], * HIV AG/AB (02/12/2023) HIV AG/AB Non-Reacti ve Non-Reactive - Reactive [facility] Blood Blood / Unknown 02/12/2023 Preeti Ellsworth MD LAB - BLOOD DRAW Final Resul t Performing Organization Address [facility] de Phone Number PIEDAD Martinez [address] [address], * [facility] FPGS PAP + HR HPV DNA (01/19/2023 11:26 AM EST) Pathologist [facility] CLINICAL INFORMATION See Note [facility]) Comment:Postmenopausal LMP See Note [facility]) Comment:11/26/2018 PREV. PAP See Note [facility]) Comment:NONE GIVEN PREV. BX See Note [facility]) Comment:NONE GIVEN SOURCE See Note [facility]) Comment:Cervix STATEMENT OF ADEQUACY See Note [facility]) Comment: Satisfactory for evaluation. Endocervical/transformation zone component present. INTERPRETATION/RESU LT See Note [facility]) Comment:Negative for intraep ithelial lesion or malignancy. COMMENT See Note [facility]) Comment: This Pap test has been evaluated with computer assisted technology. GAS CONTROLLER See Note [facility]) Comment: KAUSHAL, CT(ASCP) For informational purposes: All Cytology specimens are processed and screened at [facility]. [facility] [place] [address] COMMENT [facility]) HPV MRNA E6/E7, [facility] VIAL Not Detected NOT DETECTED [email or web address] Comment: Methodology: Record Retrieval Specialist-Mediated Amplification This assay detects E6/E7 viral messenger RNA (mRNA) from 14 high-risk HPV types (16,18,31,33,35,39,45,51,52,56,58,59,66,68). Cervical sources are required for HPV testing. If a vaginal source from a patient who has had a total hysterectomy with removal of cervix was submitted, please contact the testing laboratory for alternative testing options. For additional information, please refer to http://education.FoodBox/faq/JMS651x4 (This link if provided for information/ educational purposes only.) 01/19/2023 11:2 6 AM EST 01/22/2023 5:39 AM EST Narrative [facility] - 01/26/2023 10:20 AM EST EXPLANATORY NOTE: [...] along with historic and current clinical information. Karen Ann MD LAB - PATHOLOGY AND CYTOLOGY AM BULATORY Final Result [facility] [address] [place] [phone], [facility] ([facility]) [address] [place] [phone] [email or web address] [address] ([facility]) [place] [address] * Hemoglobin A1C (12/08/2022 11:08 AM EST) HEMOGLOBIN A1C 5.3 <5.7 % of total Hgb [facility] Comment: For the purpose of screening for the presence of diabetes: <5.7% Consistent with the absence of diabetes 5.7-6.4% Consistent with increased risk for diabetes (prediabetes) > or =6.5% Consistent with diabetes This assay result is consistent with a decreased risk of diabetes. Currently, no consensus exists regarding use of hemoglobin A1c for diagnosis of diabetes in children. According to [place] Diabetes Association (ADA) guidelines, hemoglobin A1c <7.0% represents optimal control in non- diabetic patients. Different metrics may apply to specific patient populations. Standards of Medical Care in Diabetes(ADA). Blood Blood / Unknown 12/08/2022 1 1:08 AM EST 12/09/2022 8:48 AM EST us Karen Ann MD LAB - BLOOD DRAW Edited Result - Final [facility] [address] [facility] [address] [place] [address], [employer] [address] [facility] [address]) [place] [address] * (ABNORMAL) Lipid Panel (12/08/2022 11:08 AM EST) CHOLESTEROL, TOTAL 300(H) <200 mg/dL [email or web address] HDL CHOLESTEROL 47(L) > OR = 50 mg/dL [email or web address] TRIGLYCERIDES 129 <150 mg/dL [facility] LDL-CHOLESTEROL 226(H) 99 mg/dL (calc) [facility] Comment: LDL-C levels > or = 190 mg/dL may indicate familial hypercholesterolemia (FH). Clinical assessment and measurement of blood lipid levels should be considered for all first degree relatives of patients with an FH diagnosis. For questions about testing for familial hypercholesterolemia, please call [facility] at [email or web address] T, et al. J National Lipid Association Recommendations for Patient-Centered Management of Dyslipidemia: Part 1 Journal of Clinical Lipidology 2015;9(2), 129-169. Reference range: <100 Desirable range <100 mg/dL for primary prevention; <70 mg/dL for patients with CHD or diabetic patients with > or = 2 CHD risk factors. LDL-C is now calculated using the Jf-Osmany calculation, which is a validated novel method providing better accuracy than the Friedewald equation in the estimation of LDL-C. Jf MACDONALD et al. ANKUSH. 2013;310(19): 6153-9765 (http://education.ICAgen.Carbay/faq/WME045) CHOL/HDLC RATIO 6.4(H) <5.0 (calc) [email or web address] NON-HDL CHOLESTEROL 253(H) <130 mg/dL (calc) [facility] Comment: Non-HDL level > or = 220 [...] MD LAB - BLOOD DRAW Final Result [facility] [email or web address] [email or web address] [address] [facility] [address] [place] [address], [facility] [address] [facility] [address]) [place] [address] from Last 3 Months or Most Recently Relevant to Health Maintenance Insurance [facility] Member Subscriber Plan / Payer (Ef fective 2022-Present) Name:Ani Zuñiga Relation to Subscriber:Self Name:Ani Zuñiga Payer ID:[id number] Group ID:Not on file Type:Medicaid Address: [address] [address] [place] [address] Care Teams Manager Park Relationship Specialty Start Date End Date Karen Ann MD [address] [place] [phone] PCP - General Internal Medicine 01/19/23
== END 2025-06-17 13:04 | disposition home or self-care (01) ==
LOC: HO.CT 13:03
PROVIDERS: PCP Internal Medicine; Visit Provider Physician Assistant Medical
DX: Z12.2 Encounter for screening for malignant neoplasm of respiratory organs (principal); Z87.891 Personal history of nicotine dependence; R91.1 Solitary pulmonary nodule
CPT/HCPCS: 71271

== ENCOUNTER → 2025-06-17 13:05 | Outpatient (BNV) | payer OTHER, SELFPAY | PROVIDERS: PCP Internal Medicine; Visit Provider Radiology Diagnostic Radiology | DX: Z12.2 Encounter for screening for malignant neoplasm of respiratory organs (principal); F17.210 Nicotine dependence, cigarettes, uncomplicated; I71.21 Aneurysm of the ascending aorta, without rupture; J43.2 Centrilobular emphysema; R91.8 Other nonspecific abnormal finding of lung field | CPT/HCPCS: 71271 ==

== ENCOUNTER 2025-07-13 09:54 | Outpatient (REF) | payer OTHER, SELFPAY ==
--- OUTSIDE RECORDS SUMMARY | 2025-07-13 10:48 | XMS_ITS | Clinical Summary ---
Author Organization [facility] Address [address] [place] [address] Care Team Providers Care Computer Science Teacher Name Role Phone Karen Ann MD Primary Care Provider [phone] Source Comments PLEASE NOTE, if this patient [...] 10 mg/mL concentrated solution 50 mg daily. [facility]. 0 3 Active acetaminophen (TYLENOL) [...] CP. Will refer for f/u TTE @ [facility] Cardiovascular event risk 12/15/2022 Overview (12/15/2022): Patient's [...] for this encounter. Pt currently staying @ [facility] in [place] and working with support services to find stable housing and income opportunities. Given complex limitations of homelessness, provided care as appropriate. Will continue to support as possible. Assessment & Plan (01/19/2023 11:53 AM EST): Patient is currently experiencing homelessness as documented in homeless status for this encounter. Pt currently staying @ [facility] in [place] and working with support services to find stable housing and income opportunities. Given complex limitations of homelessness, provided care as appropriate. Will continue to support as possible. Assessment & Plan (12/29/2022 12:10 PM EST): Patient is currently experiencing homelessness as documented in homeless status for this encounter. Pt currently staying @ [facility] in [place] and working with support services to find stable housing and income opportunities. Given complex limitations of homelessness, provided care as appropriate. Will continue to support as possible. Assessment & Plan (12/15/2022 1:58 PM EST): Patient is currently experiencing homelessness as documented in homeless status for this encounter. Pt currently staying @ [facility] in [place] and working with support services to find stable housing and income opportunities. Given complex limitations of homelessness, provided care as appropriate. Will continue to support as possible. Assessment & Plan (12/08/2022 6:28 PM EST): Patient is currently experiencing homelessness as documented in homeless status for this encounter. Pt currently staying @ [facility] in [place] and working with support services to find stable housing and income opportunities. Given complex limitations of homelessness, provided care as appropriate. Will continue to support as possible. Opioid use disorder, severe ([facility]) 11/26 Assessment & Plan (02/16/2023 1:16 [...] daily transport from residential program to [facility]. Provided support and motivational interviewing to continue in recovery. . Assessment & Plan (12/08/2022 6:28 PM EST): Stable on methadone @ [facility]. Provided support and motivational interviewing to [...] noted. Aneurysm of ascending aorta without rupture ([facility] V24) 12/08/2022 Overview (01/19/2023): (May 2022) Incidental finding on neck CT with 4.5 x 4.4 cm fusiform aneurysm of the ascending thoracic aorta/ f/u noncontrast CT of the chest which showed complete visualization of 4.7 cm ascending aortic aneurysm (Dec 2022) Repeat Chest CT @ [facility]. Ectasia of the ascending aorta measuring 4.4 cm. Calcified aortic valve. Recommend TTE and annual follow up CT in 1 year with ECG gated chest CTA [facility] Vasc Sgy appt 04/20/2023, 11:30AM Assessment & Plan (02/16/2023 1:03 PM EDT): (May 2022) Incidental finding on neck CT with 4.5 x 4.4 cm fusiform aneurysm of the ascending thoracic aorta/ f/u noncontrast CT of the chest which showed complete visualization of 4.7 cm ascending aortic aneurysm (Dec 2022) Repeat Chest CT @ [facility]. Ectasia of the ascending aorta measuring 4.4 cm. Calcified aortic valve. Recommend TTE (scheduled for next week) and annual follow up CT in 1 year with ECG gated chest CTA [facility] 02/20/23 [facility] Vasc Sgy appt 04/20/2023, 11:30AM Cont statin. BP well controlled off meds. Encourage smoking cessation. Assessment & Plan (01/19/2023 11:49 AM EST): (May 2022) Incidental finding on neck CT with 4.5 x 4.4 cm fusiform aneurysm of the ascending thoracic aorta/ f/u noncontrast CT of the chest which showed complete visualization of 4.7 cm ascending aortic aneurysm (Dec 2022) Repeat Chest CT @ [facility]. Ectasia of the ascending aorta measuring 4.4 cm. Calcified aortic valve. Recommend TTE and annual follow up CT in 1 year with ECG gated chest CTA [facility] Vasc Sgy appt 04/20/2023, 11:30AM Cont statin. BP well controlled off meds. Encourage smoking cessation. Assessment & Plan (12/29/2022 12:06 PM EST): Awaiting vasc sgy appt at [facility]. Cont on statin. BP well controlled. Encouraged smoking cessation and repeat CT chest. Assessment & Plan (12/15/2022 1:57 PM EST): Awaiting vasc sgy appt at [facility]. Cont on statin. BP well controlled. Encouraged [...] chest and refer to vasc sgy @ [facility]. Encourage smoking cessation and start statin. BP well controlled off treatment with SBPs in 90 so not really any room to add ERENDIRA inhibitor or other anti-HTN. Close f/u. Healthcare maintenance 12/08/2022 Assessment & Plan (02/16/2023 1:16 PM EDT): Shingle vax #2 today and HAV/HBV vax #2. Assessment & Plan (01/19/2023 11:53 AM EST): GI @ [facility] wants [facility] to see pt before scheduling colonoscopy. Referred for mammogram. Awaiting scheduling at [facility] Assessment & Plan (12/29/2022 12:11 PM EST): [...] working on scheduling. Referred for colonoscopy to [facility] as well. Assessment & Plan (12/15/2022 2:01 PM EST): HAV/HBV vaccine today. Referral for mammogram at [facility]. Needs to complete colon ca and cervical ca screening as well. Assessment & Plan (12/08/2022 6:28 PM EST): Shingles, flu, tdap vax today. Check baseline labs. Will work with PCP to schedule mammogram, colon ca screening, and pap smear. Moderate episode of recurren t major depressive disorder ([facility]) 12/08/2022 Assessment & Plan (12/29/2022 12:10 [...] f/u with PCP. Cocaine use disorder, severe ([facility]) Assessment & Plan (01/19/2023 11:52 AM [...] present plan and medications. Obstructive airway disease ([facility]) 12/08 Assessment & Plan (12/08/2022 6:30 PM [...] 07/23/2024 02/16/2023, 01/19/2023, 12/29/2022, Additional history exists [id number] (1 - season) 2024 Alcohol and Drug [...] Non-Reacti ve Non-Reactive - Reactive PIEDAD Martinez [facility] Blood Blood / Unknown 02/12/2023 Preeti Ellsworth MD LAB - BLOOD DRAW Final Resul t Performing Organization Address City/[facility]/ZIP Co de Phone Number PIEDDA Martinez [address] [address], * HIV AG/AB (02/12/2023) HIV AG/AB Non-Reacti ve Non-Reactive - Reactive [facility] Blood Blood / Unknown 02/12/2023 Preeti Ellsworth MD LAB - BLOOD DRAW Final Resul t Performing Organization Address [facility] de Phone Number PIEDAD Martinez [address] [address], * [facility] PAP + HR HPV DNA (01/19/2023 11:26 AM EST) Pathologist [facility] CLINICAL INFORMATION See Note [facility] Comment:Postmenopausal LMP See Note [facility] Comment:11/26/2018 PREV. PAP See Note [facility] Comment:NONE GIVEN PREV. BX See Note [facility] Comment:NONE GIVEN SOURCE See Note [facility] Comment:Cervix STATEMENT OF ADEQUACY See Note [facility] Comment: Satisfactory for evaluation. Endocervical/transformation zone component present. INTERPRETATION/RESU LT See Note [facility] Comment:Negative for intraep ithelial lesion or malignancy. COMMENT See Note [facility] Comment: This Pap test has been evaluated with computer assisted technology. VIDEOTAPE OPERATOR See Note [facility] Comment: [place], CT(ASCP) For informational purposes: All Cytology specimens are processed and screened at [facility]. [facility] [place] [address] COMMENT [facility] HPV MRNA E6/E7, [facility] VIAL Not Detected NOT DETECTED [facility] Comment: Methodology: Vp Ad Products And Planning-Mediated Amplification This assay detects E6/E7 viral messenger RNA (mRNA) from 14 high-risk HPV types (16,18,31,33,35,39,45,51,52,56,58,59,66,68). Cervical sources are required for HPV testing. If a vaginal source from a patient who has had a total hysterectomy with removal of cervix was submitted, please contact the testing laboratory for alternative testing options. For additional information, please refer to http://education.SNAPin Software/faq/NTF850m5 (This link if provided for information/ educational purposes only.) 01/19/2023 11:2 6 AM EST 01/22/2023 5:39 AM EST Narrative [facility] - 01/26/2023 10:20 AM EST EXPLANATORY NOTE: [...] PATHOLOGY AND CYTOLOGY AM BULATORY Final Result [facility] [address] [place] [id number], [facility] [address] [place] [phone] [facility] [address] ([facility] [place] [address] * Hemoglobin A1C (12/08/2022 11:08 AM EST) HEMOGLOBIN A1C 5.3 <5.7 % of total Hgb [facility] Comment: For the purpose of screening for the presence of diabetes: <5.7% Consistent with the absence of diabetes 5.7-6.4% Consistent with increased risk for diabetes (prediabetes) > or =6.5% Consistent with diabetes This assay result is consistent with a decreased risk of diabetes. Currently, no consensus exists regarding use of hemoglobin A1c for diagnosis of diabetes in children. According to [place] Diabetes Association (ADA) guidelines, hemoglobin A1c <7.0% represents optimal control in non- diabetic patients. Different metrics may apply to specific patient populations. Standards of Medical Care in Diabetes(ADA). Blood Blood / Unknown 12/08/2022 1 1:08 AM EST 12/09/2022 8:48 AM EST us Karen Ann MD LAB - BLOOD DRAW Edited Result - Final [facility] [address] [facility] [address] [place] [address], [facility] [address] [facility] [address] [place] [address] * (ABNORMAL) Lipid Panel (12/08/2022 11:08 AM EST) CHOLESTEROL, TOTAL 300(H) <200 mg/dL [facility] HDL CHOLESTEROL 47(L) > OR = 50 mg/dL [facility] TRIGLYCERIDES 129 <150 mg/dL [facility] LDL-CHOLESTEROL 226(H) 99 mg/dL (calc) [facility] Comment: LDL-C levels > or = 190 mg/dL may indicate familial hypercholesterolemia (FH). Clinical assessment and measurement of blood lipid levels should be considered for all first degree relatives of patients with an FH diagnosis. For questions about testing for familial hypercholesterolemia, please call [facility] Client Services at 1.014.Phonologics.INFO. Carlos T, et al. J National Lipid [...] LDL-C. Jf MACDONALD et al. ANKUSH. 2013;310(19): 0901-7210 (http://education.Yachtico.com [employer].Serious Energy/faq/OBO809) CHOL/HDLC RATIO 6.4(H) <5.0 (calc) [facility] NON-HDL CHOLESTEROL 253(H) <130 mg/dL (calc) [facility] Comment: Non-HDL level > or = 220 [...] MD LAB - BLOOD DRAW Final Result [facility] [address] [facility] [address] [place] [address], [facility] [address] [facility] [address] [place] [address] from Last 3 Months or Most Recently Relevant to Health Maintenance Insurance [facility] [place] [phone] [facility] Member Subscriber Plan / Payer (Ef fective 2022-Present) Name:Ani Zuñiga Relation to Subscriber:Self Name:Ani Zuñiga Payer ID:[id number] Group ID:Not on file Type:Medicaid Address: [address] [address] [place] [address] Care Teams Computer Science Teacher Relationship Specialty Start Date End Date Karen Ann MD [address] [place] [phone] PCP - General Internal Medicine 01/19/23
[2025-07-13 13:48] LABS: Cholesterol 278 mg/dL (<200); HDL Cholesterol 38 mg/dL (>40); Triglycerides 175 mg/dL (<150)
[2025-07-13 14:05] LABS: Thyroid Stimulating Hormone 2.65 uIU/mL (0.32-4.0)
== END 2025-07-13 09:55 | disposition home or self-care (01) ==
LOC: HO.10HDL 09:54
PROVIDERS: Visit Provider Internal Medicine
DX: H81.11 Benign paroxysmal vertigo, right ear (principal); E78.00 Pure hypercholesterolemia, unspecified; I25.10 Atherosclerotic heart disease of native coronary artery without angina pectoris; Z13.6 Encounter for screening for cardiovascular disorders
CPT/HCPCS: 36415; 80061; 84443

== ENCOUNTER 2025-07-17 15:35 | Outpatient (AMB) | payer OTHER, SELFPAY ==
--- OUTSIDE RECORDS SUMMARY | 2025-07-17 15:37 | XMS_ITS | Clinical Summary ---
Author Organization [facility] Address [address] [place] [address] Care Team Providers Care Spot Machine Operator Name Role Phone Karen Ann MD Primary Care Provider [phone] Source Comments PLEASE NOTE, if this patient [...] 10 mg/mL concentrated solution 50 mg daily. [facility]. 0 3 Active acetaminophen (TYLENOL) 325 mg [...] CP. Will refer for f/u TTE @ [facility] Cardiovascular event risk 12/15/2022 Overview (12/15/2022): Patient's [...] for this encounter. Pt currently staying @ [facility] in [place] and working with support services to find stable housing and income opportunities. Given complex limitations of homelessness, provided care as appropriate. Will continue to support as possible. Assessment & Plan (01/19/2023 11:53 AM EST): Patient is currently experiencing homelessness as documented in homeless status for this encounter. Pt currently staying @ [facility] in [place] and working with support services to find stable housing and income opportunities. Given complex limitations of homelessness, provided care as appropriate. Will continue to support as possible. Assessment & Plan (12/29/2022 12:10 PM EST): Patient is currently experiencing homelessness as documented in homeless status for this encounter. Pt currently staying @ [facility] in [place] and working with support services to find stable housing and income opportunities. Given complex limitations of homelessness, provided care as appropriate. Will continue to support as possible. Assessment & Plan (12/15/2022 1:58 PM EST): Patient is currently experiencing homelessness as documented in homeless status for this encounter. Pt currently staying @ [facility] in [place] and working with support services to find stable housing and income opportunities. Given complex limitations of homelessness, provided care as appropriate. Will continue to support as possible. Assessment & Plan (12/08/2022 6:28 PM EST): Patient is currently experiencing homelessness as documented in homeless status for this encounter. Pt currently staying @ [facility] in [place] and working with support services to find stable housing and income opportunities. Given complex limitations of homelessness, provided care as appropriate. Will continue to support as possible. Opioid use disorder, severe ([facility]) 11/26 Assessment & Plan (02/16/2023 1:16 [...] for daily transport from residential program to [facility]. Provided support and motivational interviewing to continue in recovery. . Assessment & Plan (12/08/2022 6:28 PM EST): Stable on methadone @ [facility]. Provided support and motivational interviewing to [...] noted. Aneurysm of ascending aorta without rupture ([facility] V24) 12/08/2022 Overview (01/19/2023): (May 2022) Incidental finding on neck CT with 4.5 x 4.4 cm fusiform aneurysm of the ascending thoracic aorta/ f/u noncontrast CT of the chest which showed complete visualization of 4.7 cm ascending aortic aneurysm (Dec 2022) Repeat Chest CT @ [facility]. Ectasia of the ascending aorta measuring 4.4 cm. Calcified aortic valve. Recommend TTE and annual follow up CT in 1 year with ECG gated chest CTA [facility] Vasc Sgy appt 04/20/2023, 11:30AM Assessment & Plan (02/16/2023 1:03 PM EDT): (May 2022) Incidental finding on neck CT with 4.5 x 4.4 cm fusiform aneurysm of the ascending thoracic aorta/ f/u noncontrast CT of the chest which showed complete visualization of 4.7 cm ascending aortic aneurysm (Dec 2022) Repeat Chest CT @ [facility]. Ectasia of the ascending aorta measuring 4.4 cm. Calcified aortic valve. Recommend TTE (scheduled for next week) and annual follow up CT in 1 year with ECG gated chest CTA [facility] 02/20/23 [facility] Vasc Sgy appt 04/20/2023, 11:30AM Cont statin. BP well controlled off meds. Encourage smoking cessation. Assessment & Plan (01/19/2023 11:49 AM EST): (May 2022) Incidental finding on neck CT with 4.5 x 4.4 cm fusiform aneurysm of the ascending thoracic aorta/ f/u noncontrast CT of the chest which showed complete visualization of 4.7 cm ascending aortic aneurysm (Dec 2022) Repeat Chest CT @ [facility]. Ectasia of the ascending aorta measuring 4.4 cm. Calcified aortic valve. Recommend TTE and annual follow up CT in 1 year with ECG gated chest CTA [facility] Vasc Sgy appt 04/20/2023, 11:30AM Cont statin. BP well controlled off meds. Encourage smoking cessation. Assessment & Plan (12/29/2022 12:06 PM EST): Awaiting vasc sgy appt at [facility]. Cont on statin. BP well controlled. Encouraged smoking cessation and repeat CT chest. Assessment & Plan (12/15/2022 1:57 PM EST): Awaiting vasc sgy appt at [facility]. Cont on statin. BP well controlled. Encouraged [...] chest and refer to vasc sgy @ [facility]. Encourage smoking cessation and start statin. BP well controlled off treatment with SBPs in 90 so not really any room to add ERENDIRA inhibitor or other anti-HTN. Close f/u. Healthcare maintenance 12/08/2022 Assessment & Plan (02/16/2023 1:16 PM EDT): Shingle vax #2 today and HAV/HBV vax #2. Assessment & Plan (01/19/2023 11:53 AM EST): GI @ [facility] wants [facility] sgy to see pt before scheduling colonoscopy. Referred for mammogram. Awaiting scheduling at [facility] Assessment & Plan (12/29/2022 12:11 PM EST): [...] working on scheduling. Referred for colonoscopy to [facility] as well. Assessment & Plan (12/15/2022 2:01 PM EST): HAV/HBV vaccine today. Referral for mammogram at [facility]. Needs to complete colon ca and cervical ca screening as well. Assessment & Plan (12/08/2022 6:28 PM EST): Shingles, flu, tdap vax today. Check baseline labs. Will work with PCP to schedule mammogram, colon ca screening, and pap smear. Moderate episode of recurren t major depressive disorder ([facility]) 12/08/2022 Assessment & Plan (12/29/2022 12:10 [...] f/u with PCP. Cocaine use disorder, severe ([facility]) Assessment & Plan (01/19/2023 11:52 AM [...] present plan and medications. Obstructive airway disease ([facility]) 12/08 Assessment & Plan (12/08/2022 [...] 07/23/2024 02/16/2023, 01/19/2023, 12/29/2022, Additional history exists [id number] (1 - season) 2024 Alcohol and Drug [...] Non-Reacti ve Non-Reactive - Reactive PIEDAD Martinez [facility] Blood Blood / Unknown 02/12/2023 Preeti Ellsworth MD LAB - BLOOD DRAW Final Resul t Performing Organization Address City/[facility]/ZIP Co de Phone Number PIEDAD Martinez [address] [address], * HIV AG/AB (02/12/2023) HIV AG/AB Non-Reacti ve Non-Reactive - Reactive [facility] Blood Blood / Unknown 02/12/2023 Preeti Ellsworth MD LAB - BLOOD DRAW Final Resul t Performing Organization Address [facility] de Phone Number PIEDAD Martinez [address] [address], * [facility] FPGS PAP + HR HPV DNA (01/19/2023 11:26 AM EST) Pathologist [facility] CLINICAL INFORMATION See Note [facility] Comment:Postmenopausal LMP See Note [facility] Comment:11/26/2018 PREV. PAP See Note [facility] Comment:NONE GIVEN PREV. BX See Note [facility] Comment:NONE GIVEN SOURCE See Note [facility] Comment:Cervix STATEMENT OF ADEQUACY See Note [facility] Comment: Satisfactory for evaluation. Endocervical/transformation zone component present. INTERPRETATION/RESU LT See Note [facility] Comment:Negative for intraep ithelial lesion or malignancy. COMMENT See Note [facility] Comment: This Pap test has been evaluated with computer assisted technology. PHOTO TECH See Note [facility] Comment: KAUSHAL, CT(ASCP) For informational purposes: All Cytology specimens are processed and screened at [facility]. [facility] [place] [address] COMMENT [facility] HPV MRNA E6/E7, [facility] VIAL Not Detected NOT DETECTED [facility] Comment: Methodology: Lead Database Administrator-Mediated Amplification This assay detects E6/E7 viral messenger RNA (mRNA) from 14 high-risk HPV types (16,18,31,33,35,39,45,51,52,56,58,59,66,68). Cervical sources are required for HPV testing. If a vaginal source from a patient who has had a total hysterectomy with removal of cervix was submitted, please contact the testing laboratory for alternative testing options. For additional information, please refer to http://education.Zyrra/faq/IWD974s6 (This link if provided for information/ educational purposes only.) 01/19/2023 11:2 6 AM EST 01/22/2023 5:39 AM EST Narrative [facility] - 01/26/2023 10:20 AM EST EXPLANATORY NOTE: [...] PATHOLOGY AND CYTOLOGY AM BULATORY Final Result [facility] [address] [place] [id number], [facility] [address] [place] [id number] [facility] [address] ([facility] [place] [address] * Hemoglobin A1C (12/08/2022 11:08 AM EST) HEMOGLOBIN A1C 5.3 <5.7 % of total Hgb [facility] Comment: For the purpose of screening for the presence of diabetes: <5.7% Consistent with the absence of diabetes 5.7-6.4% Consistent with increased risk for diabetes (prediabetes) > or =6.5% Consistent with diabetes This assay result is consistent with a decreased risk of diabetes. Currently, no consensus exists regarding use of hemoglobin A1c for diagnosis of diabetes in children. According to [place] Diabetes [employer] (ADA) guidelines, hemoglobin A1c <7.0% represents optimal control in non- diabetic patients. Different metrics may apply to specific patient populations. Standards of Medical Care in Diabetes(ADA). Blood Blood / Unknown 12/08/2022 1 1:08 AM EST 12/09/2022 8:48 AM EST us Karen Ann MD LAB - BLOOD DRAW Edited Result - Final [facility] [address] [facility] [place] [address], [facility] [address] [facility] [address]) [place] [address] * (ABNORMAL) Lipid Panel (12/08/2022 11:08 AM EST) CHOLESTEROL, TOTAL 300(H) <200 mg/dL [facility] HDL CHOLESTEROL 47(L) > OR = 50 mg/dL [facility] TRIGLYCERIDES 129 <150 mg/dL [facility] LDL-CHOLESTEROL 226(H) 99 mg/dL (calc) [facility] Comment: LDL-C levels > or = 190 mg/dL may indicate familial hypercholesterolemia (FH). Clinical assessment and measurement of blood lipid levels should be considered for all first degree relatives of patients with an FH diagnosis. For questions about testing for familial hypercholesterolemia, please call [facility] Client Services at [email or web address].Vantage Analytics.INFO. Carlos T, et al. J National Lipid [...] LDL-C. Jf MACDONALD et al. ANKUSH. 2013;310(19): 3616-7229 (http://education.OrangeScape.Rising/faq/GGH289) CHOL/HDLC RATIO 6.4(H) <5.0 (calc) [facility] NON-HDL CHOLESTEROL 253(H) <130 mg/dL (calc) [facility] Comment: Non-HDL level > or = 220 [...] MD LAB - BLOOD DRAW Final Result [facility] [employer] [address] [facility] [place] [address], [facility] [address] [facility] [address] [address]) [place] [address] from Last 3 Months or Most Recently Relevant to Health Maintenance Insurance [facility] Member Subscriber Plan / Payer (Ef fective 2022-Present) Name:Ani Zuñiga Relation to Subscriber:Self Name:Ani Zuñiga Payer ID:[id number] Group ID:Not on file Type:Medicaid Address: [address] [address] [place] [address] Care Teams Spot Machine Operator Relationship Specialty Start Date End Date Karen Ann MD [address] [place] [phone] PCP - General Internal Medicine 01/19/23
[2025-07-17 15:38] VITALS: BP 102/62; PULSE 83; O2SAT 94; BMI 24.6
--- NOTE | 2025-07-17 15:38 | A.OFFVIS_ITS ---
Vital Signs 07/17/25 15:38 Height 5 ft 8 in Weight 162 lb BMI 24.6 BP 102/62 Blood Pressure Location Rt brachial Position Sitting Pulse 83 Pulse Source Pulse Oximeter Pulse Oximetry (%) 94 Oxygen Delivery Method Room Air Intake Visit Reasons: Emphysema/CT Follow Up Allergies penicillin G (PENICILLIN G) Allergy (Severe, Verified 07/17/25 15:44) DIFFICULTY BREATHING Ihkxsik-[id number] Reductase Inhibitor Adverse Reaction (Severe, Verified 07/17/25 15:44) Muscle Pain HPI Comments Details: The patient is 60 year woman with a known history of tobacco dependency presenting with abnormal findings on imaging study. Apparently the patient does have underlying heart disease including a bicuspid aortic valve in a ascending aortic aneurysm. She did undergo a coronary artery CT scan to better address the coronary arteries and there they mention that there was extensive amount of emphysema and also 3 mm pulmonary nodule. Explained to the patient that the amount of lung windows on the CT scan of the coronary arteries is very limited. Therefore, it is not a complete evaluation of her lung parenchyma. Therefore, because of her smoking history she is a great candidate for the lung cancer screening program. Will go ahead and try to initiate a program in order to get her situated with serial CT scans in view of her high risk for cancer. In view of the significant emphysema noted on her CT scan it is very reasonable to perform a DNA swab for alpha-1 antitrypsin deficiency specially since she is only 59 years of age. In addition to that the patient did have a walking oximetry in the office and she initially was around 92% with activity but she quickly improved to 94% with deep breathing. Will go ahead and perform pulmonary function study to see the degree of lung capacity. She does have a rescue inhaler this time which she can use as needed. Will hold off on any additional inhalers until we review her PFTs. The patient is working on smoking cessation. She is down to 1 cigarette a day. She struggles with the however. Therefore, I did send her the nicotine patches that she can use up 14 mg and also consider using lozenges as needed in between. 12/02/2024 the patient is here for a pulmonary follow-up visit. The patient overall is doing well. She quit smoking and she is very happy about that. She has been smoke free for 3 months. She does have a CT scan scheduled for the end of the month for the lung cancer screening program. In addition to that she did have pulmonary function studies. Appears to have a moderate degree of COPD. She did have a significant response to bronchodilators. Will be reasonable to start her on oral. She can try for a month to see if this is helpful. She does complaint of dyspnea on exertion. Also with the cold weather bothers her more so this will be helpful specially during the winter months. The patient will follow-up in 8-10 months. If she has any issues prior to that she will call for an earlier assessment. Also to note her genotype for alpha-1 was mm which is normal. 07/17/2025 the patient is here for pulmonary follow-up visit. Overall she is doing well. She quit smoking altogether which is reassuring. She is using a patch and also has a nicotine lozenges. The patient also is taking part of the lung cancer screening program. Her last CT scan was back in May and it did demonstrate a new 4 mm pulmonary nodule. Therefore she will need to have a repeat CAT scan in 6 months since the last 1 since she is consider rads 3. She did not start the Anoro. I did encourage her to do so and just to try for a month. As she is also going to start pulmonary rehabilitation. Will go ahead and send a message to pulmonary rehab to get her going with that. In the meantime she will follow-up in 6 months if she has any issues prior to that she will call for an earlier assessment. [facility] Medical History (Updated 06/19/25 @ 08:30 by Karen Pelletier PA-C) Personal history of nicotine dependence Pulmonary nodule Atherosclerotic cardiovascular disease Ascending aortic aneurysm High cholesterol Substance abuse COPD (chronic obstructive pulmonary disease) Surgical History (Updated 12/19/24 @ 10:44 by Karen Pelletier PA-C) History of oophorectomy, unilateral History of tubal ligation History of appendectomy Family History (Updated 12/19/24 @ 10:40 by Karen Pelletier PA-C) Mother Lung cancer Father Heart failure Brother Heart failure Diabetes Additional heart attack (anterolateral wall) Brother Heart failure History of cardioversion Son Palpitations Sister History of heart artery stent Social History (Updated 12/19/24 @ 10:41 by Karen Pelletier PA-C) Alcohol intake: never Patient Tobacco Use Status: Former Tobacco user Tobacco use type: Cigarette Years Smoked: (onset 12yo, 1ppd x 47yrs, 40pyh - quit 09/2024) Substance Use Type: Former Substance User Review of Systems Const Denies fever(s) ENT Reports nasal congestion Card Denies chest pain and Reports dyspnea on exertion Resp Reports dyspnea on exertion and Reports wheezing GI Reports no additional complaints Musc Reports no additional complaints Skin/Breast Denies rash Satya/Lymph Reports no additional complaints Aller/Immun Reports wheezing Physical Exam Vital Signs: Last Vital Signs Pulse 83 07/17/25 15:38 BP 102/62 07/17/25 15:38 Pulse Ox 94 07/17/25 15:38 Oxygen Delivery Method Room Air 07/17/25 15:38 BMI result Body Mass Index 24.6 Const General: comfortable HEENT Head: Yes normocephalic Neck Neck: Yes supple Chest Chest palpation & inspection: normal inspection of the chest Resp Effort & Inspection: normal respiratory effort Auscultation: diminished lung sounds Cardio Heart sounds: S1 normal heart sound present and S2 normal heart sound present GI Palpation (GI): Soft to palpation Skin General skin exam: no rashes or lesions noted Extrem General: Yes clubbing, No cyanosis and No edema Assessment & Plan Assessment & Plan (1) COPD (chronic obstructive pulmonary disease): Code(s): J44.9 - Chronic obstructive pulmonary disease, unspecified Category: Medical Qualifiers: COPD type: emphysema Emphysema type: centrilobular Qualified Code(s): J43.2 - Centrilobular emphysema (2) Tobacco dependence: Code(s): F17.200 - Nicotine dependence, unspecified, uncomplicated Category: Medical (3) Pulmonary nodule: Comment: (8x3mm MYLA nodule and new 4mm RLL nodule -- plan is for a 6month repeat LDCT) Code(s): R91.1 - Solitary pulmonary nodule Category: Medical Plan start Anoro PFTs-moderate COPD nicotene patch->lozengers LUIS M as needed LDCT RADS 3 F/U 8-10 months Medications: New nicotine 1 patch transdermal Q24H 30 ea 5RF 30 days Coding Level of Care Code Est Pt Level 4 (55785) Complex EM visit Add On G2211 Diagnoses Centrilobular emphysema J43.2 COPD type: emphysema Emphysema type: centrilobular Tobacco dependence F17.200 Pulmonary nodule R91.1 Time Spent (min) 17
== END 2025-07-17 15:59 | disposition home or self-care (01) ==
LOC: HO.HPS 15:36
PROVIDERS: PCP Internal Medicine; Visit Provider Hospitalist
DX: J43.2 Centrilobular emphysema (principal); F17.200 Nicotine dependence, unspecified, uncomplicated; R91.1 Solitary pulmonary nodule
CPT/HCPCS: 99214

== ENCOUNTER → 2025-07-17 15:35 | Outpatient (BNVA) | payer OTHER, SELFPAY | PROVIDERS: PCP Internal Medicine; Visit Provider Hospitalist | DX: R91.1 Solitary pulmonary nodule (principal); J43.2 Centrilobular emphysema; F17.200 Nicotine dependence, unspecified, uncomplicated | CPT/HCPCS: 99212 ==

== ENCOUNTER 2025-09-01 10:00 | Outpatient (RCR) | payer OTHER, SELFPAY | END 2025-09-16 13:48 | disposition home or self-care (01) | LOC: HO.PR 10:00 | PROVIDERS: PCP Internal Medicine; Visit Provider Hospitalist | DX: J43.2 Centrilobular emphysema (principal) | CPT/HCPCS: 94618; 94625; 99212 ==